=== PATIENT | male | born 1955 | race Two or more races ===

== ENCOUNTER 2018-03-16 10:50 | Inpatient (IN) | payer MEDICARE, MEDICAID ==
[~2018-03-16] VITALS: Ht 167.6 cm; Wt 83.0 kg
[2018-03-16] MEDS ORDERED: ZOFRAN4 M3 ORAL (12:06)
[2018-03-16] MEDS ORDERED: LEXAPRO20 MG ORAL (12:06)
[2018-03-16] MEDS ORDERED: URECHOLINE50 MG ORAL (12:06)
[2018-03-16] MEDS ORDERED: LACTULOSE20 GM/301 ORAL (12:06)
[2018-03-16] MEDS ORDERED: TAMSULOSIN HCL0.4 MG ORAL (12:06)
[2018-03-16] MEDS ORDERED: ASPIR 8181 MG ORAL (12:06)
[2018-03-16] MEDS ORDERED: ACETAMINOPHEN325 M1 ORAL (12:06)
[2018-03-16] MEDS ORDERED: MIRALAX17 G2 ORAL (12:06)
[2018-03-16] MEDS ORDERED: XANAX0.25 MG ORAL (12:06)
[2018-03-16] MEDS ORDERED: NORCO 5-325 TA1 EACH ORAL (12:06)
[2018-03-16] MEDS ORDERED: GABAPENTIN400 MG ORAL (12:06)
[2018-03-16] MEDS ORDERED: ADALAT20 MG ORAL (12:06)
[2018-03-16] MEDS ORDERED: AMITRIPTYLINE100 MG ORAL (12:06)
[2018-03-16] MEDS ORDERED: NOVOLOG100 UNIT/3 SUBQ (12:06)
[2018-03-16] MEDS ORDERED: METOPROLOL TAR100 MG ORAL (12:06)
[2018-03-16] MEDS ORDERED: MELATONIN5 M5 ORAL (12:06)
[2018-03-16] MEDS ORDERED: Morphine Sulfate 4mg/ml Inj (IV USE ONLY) IVP ONE (13:00)
[2018-03-16 13:14] LABS: BASOPHILS % (AUTO) 0.5 % (0.0-2.0); EOSINOPHILS % (AUTO) 0.9 % (0.0-3.0); HEMATOCRIT 29.1 % (42.0-52.0); HEMOGLOBIN 9.4 G/DL (14.2-18.0); LYMPHOCYTES % (AUTO) 10.2 % (20.0-45.0); MEAN CORPUSCULAR VOLUME 86 FL (80-99); MONOCYTES % (AUTO) 6.9 % (1.0-10.0); NEUTROPHILS % (AUTO) 81.5 % (45.0-75.0); PLATELET COUNT 297 K/UL (150-450); RED BLOOD COUNT 3.38 M/UL (4.70-6.10); RED CELL DISTRIBUTION WIDTH 12.7 % (11.6-14.8); WHITE BLOOD COUNT 12.4 K/UL (4.8-10.8)
[2018-03-16 13:17] LABS: INR 0.9 (0.9-1.1)
[2018-03-16 13:25] LABS: ANION GAP 9 mmol/L (5-15); BLOOD UREA NITROGEN 37 mg/dL (7-18); CALCIUM 8.3 MG/DL (8.5-10.1); CARBON DIOXIDE 23 MMOL/L (21-32); CHLORIDE 103 MMOL/L (98-107); POTASSIUM 3.8 MMOL/L (3.5-5.1); SODIUM 135 MMOL/L (136-145)
[2018-03-16 13:36] LABS: ALANINE AMINOTRANSFERASE 16 U/L (12-78); ALBUMIN 2.6 G/DL (3.4-5.0); ALBUMIN/GLOBULIN RATIO 0.6 (1.0-2.7); ALKALINE PHOSPHATASE 126 U/L (46-116); ASPARTATE AMINO TRANSFERASE 8 U/L (15-37); BILIRUBIN,TOTAL 0.2 MG/DL (0.2-1.0); CREATINE KINASE 42 U/L (26-308)
[2018-03-16 13:50] VITALS: BP 154/68
[2018-03-16 14:00] LABS: APPEARANCE,URINE TURBID; BILIRUBIN, URINE NEGATIVE (NEGATIVE); COLOR,URINE PALE YELLOW; GLUCOSE, URINE (UA) 2+ (NEGATIVE); KETONES,URINE NEGATIVE (NEGATIVE); LEUKOCYTE ESTERASE ,URINE 3+ (NEGATIVE); NITRITE,URINE NEGATIVE (NEGATIVE); PH,URINE 8 (4.5-8.0); PROTEIN,URINE 3+ (NEGATIVE); UROBILINOGEN,URINE NORMAL MG/DL (0.0-1.0)
--- NOTE | 2018-03-16 14:36 | Diagnostic Imaging Report ---
Indication: Abdominal pain Technique: Supine view of the abdomen Comparison: none Findings: There is evidence of prior laminectomy at L3, L4, and L5. The bowel gas pattern is unremarkable. There are cholecystectomy clips. Impression: No acute process Postsurgical changes as described
--- NOTE | 2018-03-16 14:37 | Diagnostic Imaging Report ---
Indication: Shortness of breath Technique: One view of the chest Comparison: none Findings: There is minimal retrocardiac opacity, may reflect consolidation or atelectasis. The heart is enlarged. There is some atelectasis or scarring at the right lung base. The heart is borderline enlarged. The pleural spaces are clear Impression: Borderline cardiomegaly Possible retrocardiac atelectasis and/or consolidation Right basilar atelectasis or scarring
[2018-03-16] MEDS ORDERED: Piperacillin/Tazobactam 3.375 GM in NS 110 ML IVPB STA (14:42)
--- NOTE | 2018-03-16 15:29 | Emergency Room Report ---
History of Present Illness General Chief Complaint: Vomiting Source: Patient, EMS Present Illness HPI Patient presents with vomiting. He vomited 3 times yesterday, none today. States feels nausea. Min abdominal pain not rated. Not localize. Unknown last BM. Has mondragon. Changed 1 week ago. Also complaining of low back pain. This rated 7/10, aching. No recent trauma. States more due to being on hard bed. H/O spinal stenosis. Not ambulatory at this time. BPH - mondragon H/O stroke in the past with R weakness. Type 2 diabetes. Unknown recent glucose. Poor historian - unable to answer some questions. Allergies: Coded Allergies: No Known Allergies (Unverified , 03/16/18) Patient History Limited by: medical condition Past Medical History: see triage record, old chart reviewed Past Surgical History: other - lamenectomy Social History: Denies: smoking - former Social History Narrative SNF Reviewed Nursing Documentation: PMH: Agreed; PSxH: Agreed Nursing Documentation-PMH Hx Gastrointestinal Problems: Yes - gerd Hx Cerebrovascular Accident: Yes Review of Systems All Other Systems: limited Physical Exam Vital Signs Date Time Temp Pulse Resp B/P (MAP) Pulse Ox O2 Delivery O2 Flow Rate FiO2 03/16/18 10:50 98.8 64 20 165/76 95 Nasal Cannula 2.0 98.8 Sp02 EP Interpretation: reviewed, abnormal - interpreted as low by me General Appearance: no apparent distress, non-toxic, Chronically Ill Head: normocephalic Eyes: bilateral eye normal inspection, bilateral eye PERRL ENT: moist mucus membranes Neck: supple, no meningismus, no bony tend Respiratory: chest non-tender, lungs clear, normal breath sounds Cardiovascular #1: regular rate, rhythm, no edema Cardiovascular #2: 2+ radial (L) Gastrointestinal: soft, no mass, no guarding, no rebound, decreased bowel sounds Genitourinary: other - mondragon Musculoskeletal: other - extensor contractures feet. R atrophy > L. Diffuse back tenderness Neurologic: alert, DTRs symmetric, sensory intact, no Babinski, motor weakness - R > L, oriented - X2 Psychiatric: depressed affect Medical Decision Making Diagnostic Impression: Primary Impression: Vomiting Qualified Codes: R11.2 - Nausea with vomiting, unspecified Additional Impressions: UTI (urinary tract infection) Qualified Codes: T83.511A - Infection and inflammatory reaction due to indwelling urethral catheter, initial encounter; N39.0 - Urinary tract infection , site not specified Renal insufficiency H/O: stroke Back pain Qualified Codes: M54.5 - Low back pain Hyperglycemia ER Course Patient presents vomiting. Differential includes aspiration, small bowel obstruction, gastroenteritis, urinary tract infection, sepsis amongst others. Patient will be evaluated with EKG, abdominal films, chest x-ray and labs including lactate. Patient will be given IV hydration. If there is a infective source identified antibiotics he instituted. Etiology of back pain is not clear. Complicated patient as unable to give adequate answers. EKG shows sinus rhythm with no acute changes. Chest x-ray no infiltrates. Abdominal films right upper quadrant clips no small bowel obstruction. Labs significant for elevated white count, BUN and creatinine. Also urinalysis shows pyuria. Glucose 221. Patient was complaining about back pain and morphine was administered. Etiology unclear (h/o spinal stenosis and UTI). Antibodies were begun to cover for a urinary tract infection. Patient had no more vomiting here. Patient is admitted to the hospital medical floor under the care of Dr. Carreon. Laboratory Tests Test 03/16/18 12:40 03/16/18 13:45 White Blood Count 12.4 K/UL (4.8-10.8) H Red Blood Count 3.38 M/UL (4.70-6.10) L Hemoglobin 9.4 G/DL (14.2-18.0) L Hematocrit 29.1 % (42.0-52.0) L Mean Corpuscular Volume 86 FL (80-99) Mean Corpuscular Hemoglobin 27.9 PG (27.0-31.0) Mean Corpuscular Hemoglobin Concent 32.3 G/DL (32.0-36.0) Red Cell Distribution Width 12.7 % (11.6-14.8) Platelet Count 297 K/UL (150-450) Mean Platelet Volume 5.7 FL (6.5-10.1) L Neutrophils (%) (Auto) 81.5 % (45.0-75.0) H Lymphocytes (%) (Auto) 10.2 % (20.0-45.0) L Monocytes (%) (Auto) 6.9 % (1.0-10.0) Eosinophils (%) (Auto) 0.9 % (0.0-3.0) Basophils (%) (Auto) 0.5 % (0.0-2.0) Prothrombin Time 10.0 SEC (9.30-11.50) Prothrombin Time INR 0.9 (0.9-1.1) PTT 26 SEC (23-33) Sodium Level 135 MMOL/L (136-145) L Potassium Level 3.8 MMOL/L (3.5-5.1) Chloride Level 103 MMOL/L (98-107) Carbon Dioxide Level 23 MMOL/L (21-32) Anion Gap 9 mmol/L (5-15) Blood Urea Nitrogen 37 mg/dL (7-18) H Creatinine 3.0 MG/DL (0.55-1.30) H Estimate Glomerular Filtration Rate 21.2 mL/min (>60) Glucose Level 221 MG/DL (74-106) H Lactic Acid Level 1.10 mmol/L (0.4-2.0) Calcium Level 8.3 MG/DL (8.5-10.1) L Total Bilirubin 0.2 MG/DL (0.2-1.0) Aspartate Amino Transferase (AST) 8 U/L (15-37) L Alanine Aminotransferase (ALT) 16 U/L (12-78) Alkaline Phosphatase 126 U/L (46-116) H Total Creatine Kinase 42 U/L (26-308) Troponin I 0.005 ng/mL (0.000-0.056) Pro-B-Type Natriuretic Peptide 814 pg/mL (0-125) H Total Protein 7.0 G/DL (6.4-8.2) Albumin 2.6 G/DL (3.4-5.0) L Globulin 4.4 g/dL Albumin/Globulin Ratio 0.6 (1.0-2.7) L Lipase 174 U/L (73-393) Urine Color Pale yellow Urine Appearance Turbid Urine pH 8 (4.5-8.0) Urine Specific Colon 1.010 (1.005-1.035) Urine Protein 3+ (NEGATIVE) H Urine Glucose (UA) 2+ (NEGATIVE) H Urine Ketones Negative (NEGATIVE) Urine Blood 2+ (NEGATIVE) H Urine Nitrite Negative (NEGATIVE) Urine Bilirubin Negative (NEGATIVE) Urine Urobilinogen Normal MG/DL (0.0-1.0) Urine Leukocyte Esterase 3+ (NEGATIVE) H Urine RBC 2-4 /HPF (0 - 0) H Urine WBC 40-60 /HPF (0 - 0) H Urine Squamous Epithelial Cells Few /LPF (NONE/OCC) Urine Bacteria Many /HPF (NONE) H EKG Diagnostic Results Rate: normal Rhythm: NSR ST Segments: no acute changes Rhythm Strip Diag. Results EP Interpretation: yes Rhythm: NSR, no PVC's, no ectopy Chest X-Ray Diagnostic Results Chest X-Ray Diagnostic Results : Chest X-Ray Ordered: Yes # of Views/Limited/Complete: 1 View Indication: Other Interpretation: no consolidation, no effusion, no pneumothorax Impression: No acute disease Electronically Signed by: Electronically signed by Surendra Cramer MD Other X-Ray Diagnostic Results Other X-Ray Diagnostic Results : X-Ray ordered: abd # of Views/Limited Vs Complete: 2 View Indication: Other EP Interpretation: Yes Interpretation: nonspecific bowel gas, no sbo, other - clips RUQ Impression: Other Electronically Signed by: Electronically signed by Surendra Cramer MD Last Vital Signs Date Time Temp Pulse Resp B/P (MAP) Pulse Ox O2 Delivery O2 Flow Rate FiO2 03/16/18 13:50 65 13 154/68 98 Room Air 03/16/18 13:34 98.8 03/16/18 10:50 2.0 Status: improved Disposition: ADMITTED INPATIENT Condition: Serious Referrals: Mei Carreon MD (PCP) Surendra Cramer M.D. Mar 16, 2018 15:29
[2018-03-16 15:52] VITALS: BP 153/69
[2018-03-16 16:00] VITALS: BP 142/75
[2018-03-16] MEDS: Acetaminophen 500mg (ES) tab ORAL PRN ×2 (17:56→18:25)
[2018-03-16 20:00] VITALS: BP 148/78
[2018-03-16] MEDS: Norco 5mg/325mg tab ORAL PRN (20:30)
[2018-03-16] MEDS: ALPRAZolam 0.5mg tab ORAL PRN (23:56)
[2018-03-17] VITALS (9 sets, daily range): BP systolic 124–191; BP diastolic 62–84
--- NOTE | 2018-03-17 | History and Physical Report ---
DATE OF ADMISSION: 03/16/2018 HISTORY OF PRESENT ILLNESS: The patient UTI, acute renal insufficiency, and vomiting. The patient is having vomiting at the shelter. Complains also of back pain and abdominal pain as well. Denies diarrhea. Denies rectal bleeding. Denies fever or chills. The patient does have some dysuria as well. Denies orthopnea. Denies cough. PAST MEDICAL HISTORY: GERD and history of CVA in the past. The patient also has history of anxiety as well as mood disorder as well as NIDDM, insomnia, hypertension, BPH, and urinary retention. ALLERGIES: No known allergy. PAST SURGICAL HISTORY: Denies. MEDICATIONS: Xanax and Lexapro, gabapentin, insulin, meropenem, metoprolol and Flomax. SOCIAL HISTORY: Denies alcohol or street drugs. Comes from a shelter. REVIEW OF SYSTEMS: HEENT: Denies headaches. RESPIRATORY: Denies shortness of breath. Denies cough. CARDIOVASCULAR: Denies chest pain or orthopnea. GASTROINTESTINAL: Denies nausea, vomiting, or diarrhea. Does have abdominal pain and back pain, dysuria and increased frequency of urination. NEUROLOGIC: Denies change in vision or speech pattern. PHYSICAL EXAMINATION: VITAL SIGNS: Temperature is 98.6 degrees, pulse is , and blood pressure 163/69. HEENT: PERRLA. NECK: Supple. No lymphadenopathy. CHEST: Clear to auscultation. GASTROINTESTINAL: Soft, nontender, and nondistended. Does have generalized tenderness, however, no rebound. EXTREMITIES: No edema. Reflexes on both sides. LABORATORY AND DIAGNOSTIC DATA: WBC of 12.4, hemoglobin 9.4, and platelets 297. Sodium 135, potassium 3.8, BUN of 37, creatinine 3, and glucose of 221. AST of 8 and ALT of 16. BNP of 814. Lipase of 174. ASSESSMENT AND PLAN: 1. The patient also has UTI. 2. Acute renal insufficiency, renal failure. 3. Vomiting. 4. History of CVA. I have asked Dr. Franks, Dr. Mehta, and Dr. Mike Verde to see the patient for the above-mentioned diagnoses and treatment. Antibiotics per Dr. Mike Verde. Ali Carlos Carreon DR: PERLITA JOB#: [id number] CC:
[2018-03-17] MEDS: Norco 5mg/325mg tab ORAL PRN ×3 (00:31→21:10)
[2018-03-17 07:45] LABS: BASOPHILS % (AUTO) 0.7 % (0.0-2.0); EOSINOPHILS % (AUTO) 3.7 % (0.0-3.0); HEMATOCRIT 26.7 % (42.0-52.0); HEMOGLOBIN 8.5 G/DL (14.2-18.0); LYMPHOCYTES % (AUTO) 27.9 % (20.0-45.0); MEAN CORPUSCULAR VOLUME 87 FL (80-99); MONOCYTES % (AUTO) 10.4 % (1.0-10.0); NEUTROPHILS % (AUTO) 57.3 % (45.0-75.0); PLATELET COUNT 248 K/UL (150-450); RED BLOOD COUNT 3.07 M/UL (4.70-6.10); RED CELL DISTRIBUTION WIDTH 12.9 % (11.6-14.8); WHITE BLOOD COUNT 7.2 K/UL (4.8-10.8)
[2018-03-17 08:06] LABS: ALANINE AMINOTRANSFERASE 14 U/L (12-78); ALBUMIN 2.1 G/DL (3.4-5.0); ALBUMIN/GLOBULIN RATIO 0.5 (1.0-2.7); ALKALINE PHOSPHATASE 100 U/L (46-116); ANION GAP 7 mmol/L (5-15); ASPARTATE AMINO TRANSFERASE 9 U/L (15-37); BILIRUBIN,TOTAL 0.2 MG/DL (0.2-1.0); BLOOD UREA NITROGEN 28 mg/dL (7-18); CALCIUM 7.9 MG/DL (8.5-10.1); CARBON DIOXIDE 24 MMOL/L (21-32); CHLORIDE 110 MMOL/L (98-107); CREATININE 2.9 MG/DL (0.55-1.30); POTASSIUM 3.6 MMOL/L (3.5-5.1); SODIUM 141 MMOL/L (136-145)
[2018-03-17 09:25] LABS: CHOLESTEROL 162 MG/DL (< 200); CREATINE KINASE 30 U/L (26-308); GAMMA GLUTAMYL TRANSPEPTIDASE 19 U/L (5-85); HDL CHOLESTEROL 34 MG/DL (40-60); TRIGLYCERIDES 143 MG/DL (30-150)
--- NOTE | 2018-03-17 12:24 | Consultation ---
History of Present Illness General Date patient seen: Mar 17, 2018 Chief Complaint: Vomiting Present Illness HPI The patient is a 63 yo UTI, acute renal insufficiency, and vomiting. the pt is confused and anxious. the pt is was focused on eating and has been NPO since yesterday. The pt is getting agitated easily. Allergies: Coded Allergies: No Known Allergies (Unverified , 03/16/18) Medication History Scheduled Alprazolam* (Xanax*), 0.25 MG ORAL BID, (Reported) Amitriptyline HCl (Amitriptyline HCl), 50 MG ORAL BEDTIME, (Reported) Aspirin* (Aspir 81*), 81 MG ORAL DAILY, (Reported) Bethanechol Chl* (Urecholine*), 50 MG ORAL EVERY 6 HOURS, (Reported) Escitalopram Oxalate* (Lexapro*), 20 MG ORAL DAILY, (Reported) Gabapentin* (Gabapentin*), 400 MG ORAL TWICE A DAY, (Reported) Metoprolol Tartrate* (Metoprolol Tartrate*), 100 MG ORAL EVERY 12 HOURS, ( Reported) Nifedipine (Nifedipine*), 90 MG ORAL DAILY, (Reported) Polyethylene Glycol 3350* (Miralax*), 17 GM ORAL DAILY, (Reported) Tamsulosin Hcl (Tamsulosin Hcl*), 0.4 MG ORAL BEDTIME, (Reported) Scheduled PRN Acetaminophen* (Acetaminophen 325MG Tablet*), 650 MG ORAL Q4H PRN for Pain Scale (3-5), (Reported) Hydrocodone Bit/Acetaminophen 5-325* ([place] 5-325*), 1 TAB ORAL Q4H PRN for For Pain, (Reported) Melatonin (Melatonin), 5 MG ORAL BEDTIME PRN for Insomnia, (Reported) Ondansetron* (Zofran*), 4 MG ORAL Q6H PRN for Nausea & Vomiting, (Reported) Miscellaneous Medications Insulin Aspart* (Novolog*), 0 SUBQ, (Reported) Lactulose (Lactulose*), 30 ML ORAL, (Reported) Patient History Limited by: medical condition History Provided By: Patient, Medical Record, PMD Healthcare decision maker Resuscitation status Full Code Advanced Directive on File No Past Medical/Surgical History Past Medical/Surgical History: (1) Renal insufficiency (2) UTI (urinary tract infection) (3) Vomiting (4) H/O: stroke (5) Sepsis (6) Abdominal pain Review of Systems Psychiatric: Reports: prior hx, anxiety, depressed feelings, emotional problems Physical Exam General Appearance: no apparent distress, alert, confused Neurologic: depressed affect Last 24 Hour Vital Signs Date Time Temp Pulse Resp B/P (MAP) Pulse Ox O2 Delivery O2 Flow Rate FiO2 03/17/18 12:14 97.8 64 18 154/79 (104) 95 97.8 03/17/18 09:36 191/72 03/17/18 09:30 159/62 (94) 03/17/18 08:50 191/72 (111) 03/17/18 08:00 97.5 64 20 187/84 (118) 94 97.5 03/17/18 07:40 Room Air 03/17/18 04:00 98.0 61 20 155/82 (106) 94 98.0 03/17/18 00:00 97.9 63 20 124/83 (97) 93 97.9 03/16/18 21:00 Room Air 03/16/18 20:00 97.5 64 20 148/78 (101) 93 97.5 03/16/18 17:28 Room Air 03/16/18 16:10 98.6 68 13 153/69 99 Room Air 2.0 98.6 03/16/18 16:00 98.7 64 19 142/75 (97) 95 98.7 03/16/18 15:52 98.6 68 13 153/69 99 Room Air 98.6 03/16/18 14:04 98.6 03/16/18 13:50 65 13 154/68 98 Room Air 03/16/18 13:34 98.8 Intake and Output 03/16/18 03/17/18 19:00 07:00 Intake Total 65 ml 715 ml Output Total 550 ml 1300 ml Balance -485 ml -585 ml Intake Oral 0 ml IV Total 65 ml 715 ml Output Urine Total 550 ml 1300 ml Laboratory Tests Test 03/16/18 12:40 03/16/18 13:45 03/17/18 06:30 03/17/18 06:35 White Blood Count 12.4 K/UL (4.8-10.8) H 7.2 K/UL (4.8-10.8) Red Blood Count 3.38 M/UL (4.70-6.10) L 3.07 M/UL (4.70-6.10) L Hemoglobin 9.4 G/DL (14.2-18.0) L 8.5 G/DL (14.2-18.0) L Hematocrit 29.1 % (42.0-52.0) L 26.7 % (42.0-52.0) L Mean Corpuscular Volume 86 FL (80-99) 87 FL (80-99) Mean Corpuscular Hemoglobin 27.9 PG (27.0-31.0) 27.7 PG (27.0-31.0) Mean Corpuscular Hemoglobin Concent 32.3 G/DL (32.0-36.0) 31.9 G/DL (32.0-36.0) L Red Cell Distribution Width 12.7 % (11.6-14.8) 12.9 % (11.6-14.8) Platelet Count 297 K/UL (150-450) 248 K/UL (150-450) Mean Platelet Volume 5.7 FL (6.5-10.1) L 5.7 FL (6.5-10.1) L Neutrophils (%) (Auto) 81.5 % (45.0-75.0) H 57.3 % (45.0-75.0) Lymphocytes (%) (Auto) 10.2 % (20.0-45.0) L 27.9 % (20.0-45.0) Monocytes (%) (Auto) 6.9 % (1.0-10.0) 10.4 % (1.0-10.0) H Eosinophils (%) (Auto) 0.9 % (0.0-3.0) 3.7 % (0.0-3.0) H Basophils (%) (Auto) 0.5 % (0.0-2.0) 0.7 % (0.0-2.0) Prothrombin Time 10.0 SEC (9.30-11.50) Prothromb Time International Ratio 0.9 (0.9-1.1) Activated Partial Thromboplast Time 26 SEC (23-33) Sodium Level 135 MMOL/L (136-145) L 141 MMOL/L (136-145) Potassium Level 3.8 MMOL/L (3.5-5.1) 3.6 MMOL/L (3.5-5.1) Chloride Level 103 MMOL/L (98-107) 110 MMOL/L (98-107) H Carbon Dioxide Level 23 MMOL/L (21-32) 24 MMOL/L (21-32) Anion Gap 9 mmol/L (5-15) 7 mmol/L (5-15) Blood Urea Nitrogen 37 mg/dL (7-18) H 28 mg/dL (7-18) H Creatinine 3.0 MG/DL (0.55-1.30) H 2.9 MG/DL (0.55-1.30) H Estimat Glomerular Filtration Rate 21.2 mL/min (>60) 22.1 mL/min (>60) Glucose Level 221 MG/DL (74-106) H 108 MG/DL (74-106) #H Lactic Acid Level 1.10 mmol/L (0.4-2.0) Calcium Level 8.3 MG/DL (8.5-10.1) L 7.9 MG/DL (8.5-10.1) L Total Bilirubin 0.2 MG/DL (0.2-1.0) 0.2 MG/DL (0.2-1.0) Aspartate Amino Transf (AST/SGOT) 8 U/L (15-37) L 9 U/L (15-37) L Alanine Aminotransferase (ALT/SGPT) 16 U/L (12-78) 14 U/L (12-78) Alkaline Phosphatase 126 U/L (46-116) H 100 U/L (46-116) Total Creatine Kinase 42 U/L (26-308) 30 U/L (26-308) Troponin I 0.005 ng/mL (0.000-0.056) Pro-B-Type Natriuretic Peptide 814 pg/mL (0-125) H 994 pg/mL (0-125) H Total Protein 7.0 G/DL (6.4-8.2) 6.1 G/DL (6.4-8.2) L Albumin 2.6 G/DL (3.4-5.0) L 2.1 G/DL (3.4-5.0) L Globulin 4.4 g/dL 4.0 g/dL Albumin/Globulin Ratio 0.6 (1.0-2.7) L 0.5 (1.0-2.7) L Lipase 174 U/L (73-393) Urine Color Pale yellow Urine Appearance Turbid Urine pH 8 (4.5-8.0) Urine Specific [place] 1.010 (1.005-1.035) Urine Protein 3+ (NEGATIVE) H Urine Glucose (UA) 2+ (NEGATIVE) H Urine Ketones Negative (NEGATIVE) Urine Blood 2+ (NEGATIVE) H Urine Nitrite Negative (NEGATIVE) Urine Bilirubin Negative (NEGATIVE) Urine Urobilinogen Normal MG/DL (0.0-1.0) Urine Leukocyte Esterase 3+ (NEGATIVE) H Urine RBC 2-4 /HPF (0 - 0) H Urine WBC 40-60 /HPF (0 - 0) H Urine Squamous Epithelial Cells Few /LPF (NONE/OCC) Urine Bacteria Many /HPF (NONE) H Hemoglobin A1c 7.7 % (4.3-6.0) H Uric Acid 6.9 MG/DL (2.6-7.2) Phosphorus Level 4.0 MG/DL (2.5-4.9) Magnesium Level 1.8 MG/DL (1.8-2.4) Gamma Glutamyl Transpeptidase 19 U/L (5-85) C-Reactive Protein, Quantitative 2.2 mg/dL (0.00-0.90) H Triglycerides Level 143 MG/DL (30-150) Cholesterol Level 162 MG/DL (< 200) LDL Cholesterol 101 mg/dL (<100) H HDL Cholesterol 34 MG/DL (40-60) L Cholesterol/HDL Ratio 4.8 (3.3-4.4) H Vitamin B12 Level 283 PG/ML (193-986) Thyroid Stimulating Hormone (TSH) 1.165 uiU/mL (0.358-3.740) Test 03/17/18 12:15 Iron Level Pending Unsaturated Iron Binding Pending Ferritin Pending Folate Pending Microbiology Date/Time Source Procedure Growth Status 03/16/18 12:40 Blood Blood Culture - Preliminary Resulted 03/16/18 13:45 Urine,Clean Catch Urine Culture - Preliminary Resulted Height (Feet): 5 Height (Inches): 6.00 Weight (Pounds): 183 Medications Current Medications Medications (Trade) Dose Ordered Sig/Martin Route PRN Reason Start Time Stop Time Status Last Admin Dose Admin Acetaminophen (Tylenol) 500 mg Q6H PRN ORAL Mild Pain/Temp > 100.5 03/16/18 17:30 04/15/18 17:29 03/16/18 18:25 Acetaminophen/ Hydrocodone Bitart ([place] 5/325) 1 tab Q4H PRN ORAL Moderate Pain (Pain Scale 4-6) 03/16/18 20:15 03/23/18 20:14 03/17/18 08:22 Alprazolam (Xanax) 0.5 mg EVERY 8 HOURS PRN ORAL For Anxiety 03/16/18 23:45 03/23/18 23:44 03/16/18 23:56 Clonidine HCl (Catapres Tab) 0.1 mg Q6H PRN ORAL SBP>170 03/17/18 09:30 04/16/18 09:29 03/17/18 09:36 Mirtazapine (Remeron) 15 mg BEDTIME ORAL 03/16/18 23:45 04/15/18 23:44 03/16/18 23:56 Ondansetron HCl (Zofran) 4 mg Q6H PRN IVP Nausea & Vomiting 03/16/18 17:30 04/15/18 17:29 03/16/18 17:56 Sodium Chloride 1,000 ml @ 65 mls/hr [id number] IV 03/16/18 17:30 04/15/18 17:29 03/17/18 06:07 Vancomycin HCl (Vanco rx to dose) 1 ea DAILY PRN MISC Per rx protocol 03/17/18 12:15 04/16/18 12:14 UNV Assessment/Plan Status: stable Assessment/Plan [place] [facility] [place] xanax prn seroquel prn Nell Daniels MD Mar 17, 2018 12:24
[2018-03-17 12:45] LABS: FERRITIN 17 NG/ML (8-388)
[2018-03-17 12:47] LABS: % IRON SATURATION 20 % (15-50); IRON 55 ug/dL (50-175); TOTAL IRON BINDING CAPACITY 275 ug/dL (250-450)
[2018-03-17] MEDS ORDERED: Vancomycin 1.5 GM/D5W 250ML IVPB ONE (14:00)
--- NOTE | 2018-03-17 14:31 | General Progress Note ---
Assessment/Plan Problem List: (1) Renal insufficiency ICD Codes: N28.9 - Disorder of kidney and ureter, unspecified SNOMED: 782472625, 563528311 (2) UTI (urinary tract infection) ICD Codes: N39.0 - Urinary tract infection, site not specified SNOMED: 73796375, 697990710 (3) Vomiting ICD Codes: R11.10 - Vomiting, unspecified SNOMED: 466415280, 052925172 (4) H/O: stroke ICD Codes: Z86.73 - Personal history of transient ischemic attack (TIA), and cerebral infarction without residual deficits SNOMED: 922655033, 745772398 (5) Abdominal pain ICD Codes: R10.9 - Unspecified abdominal pain SNOMED: 38143976 Status: progressing Assessment/Plan elevated bp uti s/p vomitting dm htn abx per id afebrile h/o cva Subjective ROS Limited/Unobtainable: Yes Allergies: Coded Allergies: No Known Allergies (Unverified , 03/16/18) Objective Last 24 Hour Vital Signs Date Time Temp Pulse Resp B/P (MAP) Pulse Ox O2 Delivery O2 Flow Rate FiO2 03/17/18 12:14 97.8 64 18 154/79 (104) 95 97.8 03/17/18 09:36 191/72 03/17/18 09:30 159/62 (94) 03/17/18 08:50 191/72 (111) 03/17/18 08:00 97.5 64 20 187/84 (118) 94 97.5 03/17/18 07:40 Room Air 03/17/18 04:00 98.0 61 20 155/82 (106) 94 98.0 03/17/18 00:00 97.9 63 20 124/83 (97) 93 97.9 03/16/18 21:00 Room Air 03/16/18 20:00 97.5 64 20 148/78 (101) 93 97.5 03/16/18 17:28 Room Air 03/16/18 16:10 98.6 68 13 153/69 99 Room Air 2.0 98.6 03/16/18 16:00 98.7 64 19 142/75 (97) 95 98.7 03/16/18 15:52 98.6 68 13 153/69 99 Room Air 98.6 Intake and Output 03/16/18 03/17/18 19:00 07:00 Intake Total 65 ml 715 ml Output Total 550 ml 1300 ml Balance -485 ml -585 ml Intake Oral 0 ml IV Total 65 ml 715 ml Output Urine Total 550 ml 1300 ml Laboratory Tests 03/17/18 06:30: Hemoglobin A1c 7.7H, Uric Acid 6.9, Phosphorus Level 4.0, Magnesium Level 1.8, Gamma Glutamyl Transpeptidase 19, Total Creatine Kinase 30, C-Reactive Protein, Quantitative 2.2H, Pro-B-Type Natriuretic Peptide 994H, Triglycerides Level 143 , Cholesterol Level 162, LDL Cholesterol 101H, HDL Cholesterol 34L, Cholesterol/ HDL Ratio 4.8H, Vitamin B12 Level 283, Thyroid Stimulating Hormone (TSH) 1.165 03/17/18 06:35: White Blood Count 7.2, Red Blood Count 3.07L, Hemoglobin 8.5L, Hematocrit 26.7L , Mean Corpuscular Volume 87, Mean Corpuscular Hemoglobin 27.7, Mean Corpuscular Hemoglobin Concent 31.9L, Red Cell Distribution Width 12.9, Platelet Count 248, Mean Platelet Volume 5.7L, Neutrophils (%) (Auto) 57.3, Lymphocytes (%) (Auto) 27.9, Monocytes (%) (Auto) 10.4H, Eosinophils (%) (Auto) 3.7H, Basophils (%) (Auto) 0.7, Sodium Level 141, Potassium Level 3.6, Chloride Level 110H, Carbon Dioxide Level 24, Anion Gap 7, Blood Urea Nitrogen 28H, Creatinine 2.9H, Estimat Glomerular Filtration Rate 22.1, Glucose Level 108#H, Calcium Level 7.9L, Iron Level 55, Total Iron Binding Capacity 275, Percent Iron Saturation 20, Unsaturated Iron Binding 220, Ferritin 17, Total Bilirubin 0.2, Aspartate Amino Transf (AST/SGOT) 9L, Alanine Aminotransferase (ALT/SGPT) 14, Alkaline Phosphatase 100, Total Protein 6.1L, Albumin 2.1L, Globulin 4.0, Albumin/Globulin Ratio 0.5L, Folate 4.3L Height (Feet): 5 Height (Inches): 6.00 Weight (Pounds): 183 Cardiovascular: normal rate Respiratory/Chest: lungs clear Abdomen: soft Mei Carreon MD Mar 17, 2018 14:31
--- NOTE | 2018-03-17 14:40 | Consultation ---
Consult Note Consult Note asked to eval for renal failure- patient admitted with vomiting and abdominal pain Patient admitted through ER Poor historian Examined data reviewed discussed with RN . Assessment/Plan Renal failure, Diabetic Nephropathy Vomiting ? Gastroparesis UTI (urinary tract infection) H/O: stroke Anemia DM Reglan IV Protonix Hydrate Kidney AIMNTA 2D Echo PO folic acid Royce Mehta MD Mar 17, 2018 14:40
[2018-03-17] MEDS ORDERED: Metoclopramide 10mg/2ml Inj IVP SCH (14:45)
[2018-03-17] MEDS ORDERED: Metoclopramide 10mg/2ml Inj IVP PRN (14:45)
[2018-03-17] MEDS ORDERED: Vitamin B12 1000mcg/ml Inj IM SCH (15:00)
[2018-03-17] MEDS: Pantoprazole Inj IVP SCH (15:14)
--- NOTE | 2018-03-17 16:12 | GI Initial Consult Note ---
History of Present Illness General Date patient seen: Mar 17, 2018 Time patient seen: 16:12 Reason for Hospitalization: Vomiting Referring physician: DORYS ERICKSON Reason for Consultation: VOMITING Present Illness HPI 63 year old male patient presents today with UTI, acute renal insufficiency, and vomiting. The patient is having vomiting at the half-way. Complains also of back pain and abdominal pain as well. Denies diarrhea. Denies rectal bleeding. Denies fever or chills. The patient does have some dysuria as well. Denies orthopnea. Denies cough. GI consulted for vomiting. Pt seen, awake A&Ox4 NAD with no active s/x of N/V/ D. Has Right sided weakness s/p CVA Denies any current abdominal pain, constipation or diarrhea. The patient stated he had earlier episodes of emesis , but denied any coffee grounds or hematemesis, which has resolved at this time. Labs reviewed show anemia, elevated HgA1C, folate deficiency and CRP elevation. KUB negative. Per patient, he had both EGD and colonoscopy approximately 2 years ago, but unable to recall any of its results. Home Meds Reported Medications Insulin Aspart* (NOVOLOG*) 100 Unit/1 Ml Insuln.pen, 0 SUBQ, #1 EA 0 Refills 03/16/18 Ondansetron* (ZOFRAN*) 4 Mg Tablet, 4 MG ORAL Q6H PRN for Nausea & Vomiting, TAB 03/16/18 Alprazolam* (XANAX*) 0.25 Mg Tablet, 0.25 MG ORAL BID, #30 TAB 0 Refills 03/16/18 Bethanechol Chl* (URECHOLINE*) 50 Mg Tablet, 50 MG ORAL EVERY 6 HOURS, TAB 03/16/18 Tamsulosin Hcl (TAMSULOSIN HCL*) 0.4 Mg Cap.er.24h, 0.4 MG ORAL BEDTIME, CAP 03/16/18 Hydrocodone Bit/Acetaminophen 5-325* (NORCO 5-325*) 1 Each Tablet, 1 TAB ORAL Q4H PRN for For Pain, TAB 0 Refills 03/16/18 Nifedipine (Nifedipine*) 20 Mg Capsule, 90 MG ORAL DAILY, CAP 03/16/18 Polyethylene Glycol 3350* (MIRALAX*) 17 Gm Powd.pack, 17 GM ORAL DAILY, PACKET 03/16/18 Metoprolol Tartrate* (METOPROLOL TARTRATE*) 100 Mg Tablet, 100 MG ORAL EVERY 12 HOURS, TAB 03/16/18 Melatonin (MELATONIN) 5 Mg Tab.rapdis, 5 MG ORAL BEDTIME PRN for Insomnia, TAB 03/16/18 Escitalopram Oxalate* (LEXAPRO*) 20 Mg Tablet, 20 MG ORAL DAILY, TAB 03/16/18 Lactulose (LACTULOSE*) 20 Gm/30 Ml Solution, 30 ML ORAL, ML 0 Refills 03/16/18 Gabapentin* (GABAPENTIN*) 400 Mg Capsule, 400 MG ORAL TWICE A DAY, CAP 0 Refills 03/16/18 Aspirin* (ASPIR 81*) 81 Mg Tablet.dr, 81 MG ORAL DAILY, TAB 03/16/18 Amitriptyline HCl (Amitriptyline HCl) 100 Mg Tablet, 50 MG ORAL BEDTIME, TAB 03/16/18 Acetaminophen* (ACETAMINOPHEN 325MG TABLET*) 325 Mg Tablet, 650 MG ORAL Q4H PRN for Pain Scale (3-5), TAB 03/16/18 Med list reviewed/reconciled: Yes Allergies: Coded Allergies: No Known Allergies (Unverified , 03/16/18) Patient History History Provided By: Patient, Medical Record [facility] Narrative PAST MEDICAL HISTORY: GERD and history of CVA in the past. The patient also has history of anxiety as well as mood disorder as well as NIDDM, insomnia, hypertension, BPH, and urinary retention. Social History: Denies: smoking, alcohol use, drug use, other Review of Systems All Other Systems: negative except mentioned in HPI Physical Exam Vital Signs Date Time Temp Pulse Resp B/P (MAP) Pulse Ox O2 Delivery O2 Flow Rate FiO2 03/16/18 10:50 98.8 64 20 165/76 95 Nasal Cannula 2.0 98.8 Sp02 EP Interpretation: reviewed, normal Labs Laboratory Tests Test 03/17/18 06:30 03/17/18 06:35 Hemoglobin A1c 7.7 % (4.3-6.0) H Uric Acid 6.9 MG/DL (2.6-7.2) Phosphorus Level 4.0 MG/DL (2.5-4.9) Magnesium Level 1.8 MG/DL (1.8-2.4) Gamma Glutamyl Transpeptidase 19 U/L (5-85) Total Creatine Kinase 30 U/L (26-308) C-Reactive Protein, Quantitative 2.5 mg/dL (0.00-0.90) H Pro-B-Type Natriuretic Peptide 994 pg/mL (0-125) H Triglycerides Level 143 MG/DL (30-150) Cholesterol Level 162 MG/DL (< 200) LDL Cholesterol 101 mg/dL (<100) H HDL Cholesterol 34 MG/DL (40-60) L Cholesterol/HDL Ratio 4.8 (3.3-4.4) H Vitamin B12 Level 283 PG/ML (193-986) Thyroid Stimulating Hormone (TSH) 1.165 uiU/mL (0.358-3.740) White Blood Count 7.2 K/UL (4.8-10.8) Red Blood Count 3.07 M/UL (4.70-6.10) L Hemoglobin 8.5 G/DL (14.2-18.0) L Hematocrit 26.7 % (42.0-52.0) L Mean Corpuscular Volume 87 FL (80-99) Mean Corpuscular Hemoglobin 27.7 PG (27.0-31.0) Mean Corpuscular Hemoglobin Concent 31.9 G/DL (32.0-36.0) L Red Cell Distribution Width 12.9 % (11.6-14.8) Platelet Count 248 K/UL (150-450) Mean Platelet Volume 5.7 FL (6.5-10.1) L Neutrophils (%) (Auto) 57.3 % (45.0-75.0) Lymphocytes (%) (Auto) 27.9 % (20.0-45.0) Monocytes (%) (Auto) 10.4 % (1.0-10.0) H Eosinophils (%) (Auto) 3.7 % (0.0-3.0) H Basophils (%) (Auto) 0.7 % (0.0-2.0) Sodium Level 141 MMOL/L (136-145) Potassium Level 3.6 MMOL/L (3.5-5.1) Chloride Level 110 MMOL/L (98-107) H Carbon Dioxide Level 24 MMOL/L (21-32) Anion Gap 7 mmol/L (5-15) Blood Urea Nitrogen 28 mg/dL (7-18) H Creatinine 2.9 MG/DL (0.55-1.30) H Estimat Glomerular Filtration Rate 22.1 mL/min (>60) Glucose Level 108 MG/DL (74-106) #H Calcium Level 7.9 MG/DL (8.5-10.1) L Iron Level 55 ug/dL (50-175) Total Iron Binding Capacity 275 ug/dL (250-450) Percent Iron Saturation 20 % (15-50) Unsaturated Iron Binding 220 ug/dL (112-346) Ferritin 17 NG/ML (8-388) Total Bilirubin 0.2 MG/DL (0.2-1.0) Aspartate Amino Transf (AST/SGOT) 9 U/L (15-37) L Alanine Aminotransferase (ALT/SGPT) 14 U/L (12-78) Alkaline Phosphatase 100 U/L (46-116) Total Protein 6.1 G/DL (6.4-8.2) L Albumin 2.1 G/DL (3.4-5.0) L Globulin 4.0 g/dL Albumin/Globulin Ratio 0.5 (1.0-2.7) L Folate 4.3 NG/ML (8.6-58.9) L General Appearance: well appearing, no apparent distress, alert Head: normocephalic EENT: PERRL/EOMI, normal ENT inspection Neck: supple Respiratory: normal breath sounds, no respiratory distress Cardiovascular: normal rate Gastrointestinal: normal inspection, non tender, soft, normal bowel sounds, non -distended Rectal: deferred Genitourinary: deferred Musculoskeletal: normal inspection, back normal Neurologic: normal inspection, alert, oriented x3, responsive Psychiatric: normal inspection, judgement/insight normal, memory normal Skin: normal inspection, normal color, no rash, warm/dry, palpation normal, well hydrated Lymphatic: normal inspection, no adenopathy Current Medications Current Medications Medications (Trade) Dose Ordered Sig/Martin Route PRN Reason Start Time Stop Time Status Last Admin Dose Admin Acetaminophen (Tylenol) 500 mg Q6H PRN ORAL Mild Pain/Temp > 100.5 03/16/18 17:30 04/15/18 17:29 03/16/18 18:25 Acetaminophen/ Hydrocodone Bitart ([place] 5/325) 1 tab Q4H PRN ORAL Moderate Pain (Pain Scale 4-6) 03/16/18 20:15 03/23/18 20:14 9/20/18 08:22 Alprazolam (Xanax) 0.5 mg EVERY 8 HOURS PRN ORAL For Anxiety 03/16/18 23:45 03/23/18 23:44 03/16/18 23:56 Aspirin (Ecotrin) 81 mg DAILY ORAL 03/18/18 09:00 04/17/18 08:59 Ceftriaxone Sodium 1 gm/ Dextrose 55 ml @ 110 mls/hr Q24H IVPB 03/17/18 17:00 03/24/18 16:59 Clonidine HCl (Catapres Tab) 0.1 mg Q6H PRN ORAL SBP>170 03/17/18 09:30 04/16/18 09:29 03/17/18 09:36 Cyanocobalamin (Vitamin B12) 1,000 mcg ONCE IM 03/17/18 15:00 03/17/18 16:30 03/17/18 15:15 Dextrose (Dextrose 50%) 25 ml PRN PRN IV Hypoglycemia 03/17/18 13:00 04/16/18 12:59 Dextrose (Dextrose 50%) 50 ml PRN PRN IV Hypoglycemia 03/17/18 13:00 04/16/18 12:59 Docusate Sodium (Colace) 100 mg THREE TIMES A DAY ORAL 03/17/18 18:00 04/16/18 17:59 Escitalopram Oxalate (Lexapro) 10 mg DAILY ORAL 03/18/18 09:00 04/17/18 08:59 Folic Acid (Folate) 2 mg DAILY ORAL 03/18/18 09:00 04/17/18 08:59 Insulin Aspart (NovoLOG) BEFORE MEALS AND HS SUBQ 03/17/18 16:30 04/16/18 16:29 Metoclopramide HCl (Reglan) 10 mg Q8H PRN IVP Nausea & Vomiting 03/17/18 14:45 04/16/18 14:44 Metoprolol Tartrate (Lopressor) 25 mg EVERY 12 HOURS ORAL 03/17/18 21:00 04/16/18 20:59 Mirtazapine (Remeron) 15 mg BEDTIME ORAL 03/16/18 23:45 04/15/18 23:44 03/16/18 23:56 Ondansetron HCl (Zofran) 4 mg Q6H PRN IVP Nausea & Vomiting 03/16/18 17:30 04/15/18 17:29 03/16/18 17:56 Pantoprazole (Protonix) 40 mg DAILY IVP 03/17/18 15:00 04/16/18 14:59 03/17/18 15:14 Quetiapine Fumarate (SEROquel) 25 mg Q6H PRN ORAL agitation 03/17/18 13:00 04/16/18 12:59 Sodium Chloride 1,000 ml @ 75 mls/hr [id number] IV 03/17/18 15:00 04/16/18 14:59 Tamsulosin HCl (Flomax) 0.4 mg BEDTIME ORAL 03/17/18 21:00 04/16/18 20:59 Vancomycin HCl (Vanco rx to dose) 1 ea DAILY PRN MISC Per rx protocol 03/17/18 12:15 04/16/18 12:14 GI: Plan Problems: (1) Diabetes mellitus (2) Folate deficiency (3) Abdominal pain (4) Sepsis (5) Vomiting (6) H/O: stroke (7) Gastroparesis due to DM Plan R sided weakness s/p CVA anemia work up reviewed >> folate deficiency DM elevated CRP renal insufficiency KUB unremarkable Hx of UC will consider endoscopy if medical management fails, most likely gastroparesis DM management reglan IV for N/V PRN adv diet as tolerated folate monitor H&H, prn transfusions ppi fu labs, ESR Discussed with Dr. Franks. Thank you for this patient referral, we will follow. The patient was seen and examined at bedside and all new and available data was reviewed in the patients chart. I agree with the above findings, impression and plan. (Patient seen earlier today. Signature stamp does not reflect patient encounter time.). - MD Poonam Mcclain,[facility] Mar 17, 2018 16:12
--- NOTE | 2018-03-17 16:30 | Diagnostic Imaging Report ---
Indication: Acute renal failure Technique: Grayscale and duplex images of the kidneys, retroperitoneum, and bladder were obtained. Comparison: none Findings: Right kidney measures 8.5 cm in length. Left kidney measures 10.2 cm in length. Both kidneys demonstrate increased echogenicity. No hydronephrosis. Cysts are seen in both kidneys. Inferior vena cava is not well-visualized, probably related to patient body habitus. Bladder is empty, contains a Rain catheter. Impression: Negative for hydronephrosis Increased bilateral renal echogenicity, likely on the basis of medical renal disease Empty bladder with a Rain catheter Nonvisualized inferior vena cava Bilateral renal cysts incidentally noted.
[2018-03-17] MEDS: NovoLOG Insulin Flexpen SUBQ SCH ×2 (16:37→21:11)
[2018-03-17] MEDS: Docusate 100mg cap ORAL SCH (17:28)
[2018-03-17] MEDS: cefTRIAXone 1 GM in D5W 55 ML IVPB SCH (17:28)
--- NOTE | 2018-03-17 19:15 | Consultation ---
DATE OF CONSULTATION: 03/17/2018 INFECTIOUS DISEASE CONSULTATION CONSULTING PHYSICIAN: Mike Verde M.D. PRIMARY ATTENDING PHYSICIAN: Mei Carreon M.D. REASON FOR CONSULT: UTI and positive blood culture. HISTORY OF PRESENT ILLNESS: The patient is a 63-year-old male admitted yesterday from a care home facility complaining of nausea and vomiting. He was found to have mild leukocytosis. He was found to have acute renal failure and pyuria. PAST MEDICAL HISTORY: Significant for diabetes mellitus type 2, BPH, hypertension, status post CVA and right hemiplegia. ALLERGIES: No known drug allergies. MEDICATIONS: Getting Lexapro, aspirin, folic acid, metoprolol, Flomax, Colace, insulin, Protonix, vitamin B12, metoclopramide, vancomycin, Tylenol, Zofran and also get Levaquin and Zosyn in the ER. SOCIAL HISTORY: [facility] resident. He has history of alcohol, drug abuse and smoking 5 years ago. REVIEW OF SYSTEMS: No fever. No chills. Nausea and vomiting improved today. No pain. He have dysuria. PHYSICAL EXAMINATION: GENERAL APPEARANCE: No acute distress. Awake, alert, noncommunicative. VITAL SIGNS: Temperature 97.8 degrees, pulse 64, and blood pressure 154/79. HEAD AND NECK: [place] conjunctivae. HEART: Normal rate. LUNGS: Clear. ABDOMEN: Soft and nontender. EXTREMITY: He has no edema. GENITOURINARY: He has Rain catheter. LABORATORY AND DIAGNOSTIC DATA: WBC today is 7.2 coming down from 12.4, hemoglobin 8.5, hematocrit 26.7 and platelet 248. Sodium 141, potassium 3.6, chloride 110, bicarbonate 24, BUN 28, creatinine 2.9 and glucose 108. Hemoglobin A1c is 7.7. Albumin is 2.1. Urine culture is pending. Blood culture grew gram-positive coccyx in cluster. The patient had x-ray that shows retrocardiac opacity, atelectasis or consolidation. IMPRESSION: 1. Bacteremia, with gram positive cocci . 2. Pyuria, likely UTI. 3. Acute renal failure. 4. Anemia. 5. Diabetes mellitus. 6. Hypertension. 7. Prostatic hypertrophy. RECOMMENDATION: We will continue with IV vancomycin, started on IV ceftriaxone. We will follow up the cultures. At the end of my exam, I thank Dr. Carreon for involving me in the care of this patient. Mike Verde M.D. DR: TOÑITO JOB#: [id number] CC: NICK
[2018-03-17] MEDS: ALPRAZolam 0.5mg tab ORAL PRN (21:09)
[2018-03-17] MEDS: Tamsulosin 0.4mg cap ORAL SCH (21:10)
[2018-03-17] MEDS: Metoprolol 25mg tab ORAL SCH (21:12)
[2018-03-18] VITALS: BP 169/79
[2018-03-18 04:03] VITALS: BP 193/71
[2018-03-18] MEDS: Norco 5mg/325mg tab ORAL PRN ×2 (04:48→18:37)
[2018-03-18 06:09] LABS: BASOPHILS % (AUTO) 0.6 % (0.0-2.0); EOSINOPHILS % (AUTO) 3.1 % (0.0-3.0); HEMATOCRIT 28.9 % (42.0-52.0); HEMOGLOBIN 9.3 G/DL (14.2-18.0); LYMPHOCYTES % (AUTO) 22.6 % (20.0-45.0); MEAN CORPUSCULAR VOLUME 87 FL (80-99); MONOCYTES % (AUTO) 10.9 % (1.0-10.0); NEUTROPHILS % (AUTO) 62.8 % (45.0-75.0); PLATELET COUNT 241 K/UL (150-450); RED BLOOD COUNT 3.33 M/UL (4.70-6.10); RED CELL DISTRIBUTION WIDTH 12.7 % (11.6-14.8); WHITE BLOOD COUNT 8.2 K/UL (4.8-10.8)
[2018-03-18] MEDS: NovoLOG Insulin Flexpen SUBQ SCH ×4 (06:11→21:17)
[2018-03-18 06:21] LABS: ALANINE AMINOTRANSFERASE 14 U/L (12-78); ALBUMIN 2.2 G/DL (3.4-5.0); ALBUMIN/GLOBULIN RATIO 0.5 (1.0-2.7); ALKALINE PHOSPHATASE 101 U/L (46-116); ANION GAP 9 mmol/L (5-15); ASPARTATE AMINO TRANSFERASE 7 U/L (15-37); BILIRUBIN,TOTAL 0.3 MG/DL (0.2-1.0); BLOOD UREA NITROGEN 30 mg/dL (7-18); CARBON DIOXIDE 24 MMOL/L (21-32); CHLORIDE 108 MMOL/L (98-107); PHOSPHORUS 4.2 MG/DL (2.5-4.9); POTASSIUM 4.1 MMOL/L (3.5-5.1); SODIUM 141 MMOL/L (136-145)
[2018-03-18] MEDS: Pantoprazole Inj IVP SCH (08:12)
[2018-03-18] MEDS: Metoprolol 25mg tab ORAL SCH ×2 (08:12→21:14)
[2018-03-18] MEDS: Aspirin EC 81mg tab ORAL SCH (08:12)
[2018-03-18] MEDS: Docusate 100mg cap ORAL SCH ×3 (08:12→17:16)
[2018-03-18 08:55] VITALS: BP 125/75
--- NOTE | 2018-03-18 11:00 | Consultation ---
Consult Note Consult Note Hematology Consult Reason for Hospitalization: Vomiting Referring physician: DORYS ERICKSON Reason for Consultation: Anemia evaluation DOS: 03/17/2018 ID 63 year old male patient presents today with UTI, acute renal insufficiency, and vomiting. The patient is having vomiting at the halfway. Complains also of back pain and abdominal pain as well. Denies diarrhea. Denies rectal bleeding. Denies fever or chills. The patient does have some dysuria as well. Denies orthopnea. Denies cough. GI consulted for vomiting. Pt seen, awake A& Ox4 NAD with no active s/x of N/V/D. Has Right sided weakness s/p CVA Denies any current abdominal pain, constipation or diarrhea. The patient stated he had earlier episodes of emesis, but denied any coffee grounds or hematemesis, which has resolved at this time. Labs reviewed show anemia, elevated HgA1C, folate deficiency and CRP elevation. KUB negative. Per patient, he had both EGD and colonoscopy approximately 2 years ago, but unable to recall any of its results. Anemia of iron deficiency was noted and he was started on iv iron as ferritin is low. Medications Insulin Aspart* (NOVOLOG*) 100 Unit/1 Ml Insuln.pen, 0 SUBQ, #1 EA 0 Refills 03/16/18 Ondansetron* (ZOFRAN*) 4 Mg Tablet, 4 MG ORAL Q6H PRN for Nausea & Vomiting, TAB 03/16/18 Alprazolam* (XANAX*) 0.25 Mg Tablet, 0.25 MG ORAL BID, #30 TAB 0 Refills 03/16/18 Bethanechol Chl* (URECHOLINE*) 50 Mg Tablet, 50 MG ORAL EVERY 6 HOURS, TAB 03/16/18 Tamsulosin Hcl (TAMSULOSIN HCL*) 0.4 Mg Cap.er.24h, 0.4 MG ORAL BEDTIME, CAP 03/16/18 Hydrocodone Bit/Acetaminophen 5-325* (NORCO 5-325*) 1 Each Tablet, 1 TAB ORAL Q4H PRN for For Pain, TAB 0 Refills 03/16/18 Nifedipine (Nifedipine*) 20 Mg Capsule, 90 MG ORAL DAILY, CAP 03/16/18 Polyethylene Glycol 3350* (MIRALAX*) 17 Gm Powd.pack, 17 GM ORAL DAILY, PACKET 03/16/18 Metoprolol Tartrate* (METOPROLOL TARTRATE*) 100 Mg Tablet, 100 MG ORAL EVERY 12 HOURS, TAB 03/16/18 Melatonin (MELATONIN) 5 Mg Tab.rapdis, 5 MG ORAL BEDTIME PRN for Insomnia, TAB 03/16/18 Escitalopram Oxalate* (LEXAPRO*) 20 Mg Tablet, 20 MG ORAL DAILY, TAB 03/16/18 Lactulose (LACTULOSE*) 20 Gm/30 Ml Solution, 30 ML ORAL, ML 0 Refills 03/16/18 Gabapentin* (GABAPENTIN*) 400 Mg Capsule, 400 MG ORAL TWICE A DAY, CAP 0 Refills 03/16/18 Aspirin* (ASPIR 81*) 81 Mg Tablet.dr, 81 MG ORAL DAILY, TAB 03/16/18 Amitriptyline HCl (Amitriptyline HCl) 100 Mg Tablet, 50 MG ORAL BEDTIME, TAB 03/16/18 Acetaminophen* (ACETAMINOPHEN 325MG TABLET*) 325 Mg Tablet, 650 MG ORAL Q4H PRN for Pain Scale (3-5), TAB 03/16/18 Med list reviewed/reconciled: Yes Allergies: No Known Allergies (Unverified , 03/16/18) History Provided By: Patient, Medical Record [facility] Narrative PAST MEDICAL HISTORY: GERD and history of CVA in the past. The patient also has history of anxiety as well as mood disorder as well as NIDDM, insomnia, hypertension, BPH, and urinary retention. Social History: Denies: smoking, alcohol use, drug use, other ROS: no fevers or chills, or night sweats Physical Exam Vital Signs Last 24 Hour Vital Signs Date Time Temp Pulse Resp B/P (MAP) Pulse Ox O2 Delivery O2 Flow Rate FiO2 03/18/18 08:55 97.9 58 20 125/75 (92) 95 97.9 03/18/18 08:12 61 193/71 03/18/18 08:12 193/71 03/18/18 07:39 Room Air 03/18/18 04:03 97.4 61 20 193/71 (111) 95 97.4 03/18/18 01:03 169/79 03/18/18 00:00 97.9 59 18 169/79 (109) 95 97.9 03/17/18 21:12 60 162/83 03/17/18 21:00 Room Air 03/17/18 20:00 97.7 60 20 162/83 (109) 95 97.7 03/17/18 17:00 159/62 (94) 03/17/18 16:35 179/80 03/17/18 16:27 97.7 63 20 179/80 (113) 95 97.7 03/17/18 12:14 97.8 64 18 154/79 (104) 95 97.8 Laboratory Tests Test 03/17/18 06:30 03/17/18 06:35 Hemoglobin A1c 7.7 % (4.3-6.0) H Uric Acid 6.9 MG/DL (2.6-7.2) Phosphorus Level 4.0 MG/DL (2.5-4.9) Magnesium Level 1.8 MG/DL (1.8-2.4) Gamma Glutamyl Transpeptidase 19 U/L (5-85) Total Creatine Kinase 30 U/L (26-308) C-Reactive Protein, Quantitative 2.5 mg/dL (0.00-0.90) H Pro-B-Type Natriuretic Peptide 994 pg/mL (0-125) H Triglycerides Level 143 MG/DL (30-150) Cholesterol Level 162 MG/DL (< 200) LDL Cholesterol 101 mg/dL (<100) H HDL Cholesterol 34 MG/DL (40-60) L Cholesterol/HDL Ratio 4.8 (3.3-4.4) H Vitamin B12 Level 283 PG/ML (193-986) Thyroid Stimulating Hormone (TSH) 1.165 uiU/mL (0.358-3.740) White Blood Count 7.2 K/UL (4.8-10.8) Red Blood Count 3.07 M/UL (4.70-6.10) L Hemoglobin 8.5 G/DL (14.2-18.0) L Hematocrit 26.7 % (42.0-52.0) L Mean Corpuscular Volume 87 FL (80-99) Mean Corpuscular Hemoglobin 27.7 PG (27.0-31.0) Mean Corpuscular Hemoglobin Concent 31.9 G/DL (32.0-36.0) L Red Cell Distribution Width 12.9 % (11.6-14.8) Platelet Count 248 K/UL (150-450) Mean Platelet Volume 5.7 FL (6.5-10.1) L Neutrophils (%) (Auto) 57.3 % (45.0-75.0) Lymphocytes (%) (Auto) 27.9 % (20.0-45.0) Monocytes (%) (Auto) 10.4 % (1.0-10.0) H Eosinophils (%) (Auto) 3.7 % (0.0-3.0) H Basophils (%) (Auto) 0.7 % (0.0-2.0) Sodium Level 141 MMOL/L (136-145) Potassium Level 3.6 MMOL/L (3.5-5.1) Chloride Level 110 MMOL/L (98-107) H Carbon Dioxide Level 24 MMOL/L (21-32) Anion Gap 7 mmol/L (5-15) Blood Urea Nitrogen 28 mg/dL (7-18) H Creatinine 2.9 MG/DL (0.55-1.30) H Estimat Glomerular Filtration Rate 22.1 mL/min (>60) Glucose Level 108 MG/DL (74-106) #H Calcium Level 7.9 MG/DL (8.5-10.1) L Iron Level 55 ug/dL (50-175) Total Iron Binding Capacity 275 ug/dL (250-450) Percent Iron Saturation 20 % (15-50) Unsaturated Iron Binding 220 ug/dL (112-346) Ferritin 17 NG/ML (8-388) Total Bilirubin 0.2 MG/DL (0.2-1.0) Aspartate Amino Transf (AST/SGOT) 9 U/L (15-37) L Alanine Aminotransferase (ALT/SGPT) 14 U/L (12-78) Alkaline Phosphatase 100 U/L (46-116) Total Protein 6.1 G/DL (6.4-8.2) L Albumin 2.1 G/DL (3.4-5.0) L Globulin 4.0 g/dL Albumin/Globulin Ratio 0.5 (1.0-2.7) L Folate 4.3 NG/ML (8.6-58.9) L General Appearance: well appearing Head: normocephalic EENT: PERRL/EOMI, normal ENT inspection Neck: supple Respiratory: normal breath sounds Cardiovascular: normal rate Gastrointestinal: normal inspection, non tender, soft, normal bowel sounds, nd Rectal: deferred Genitourinary: deferred Musculoskeletal: normal inspection, back normal Neurologic: normal inspection, alert, oriented x3, responsive Psychiatric: normal inspection, judgement/insight normal Skin: normal inspection, normal color, no rash, warm/dry Lymphatic: normal inspection, no adenopathy Current Medications Medications (Trade) Dose Ordered Sig/Martin Route PRN Reason Start Time Stop Time Status Last Admin Dose Admin Acetaminophen (Tylenol) 500 mg Q6H PRN ORAL Mild Pain/Temp > 100.5 03/16/18 17:30 04/15/18 17:29 03/16/18 18:25 Acetaminophen/ Hydrocodone Bitart ([place] 5/325) 1 tab Q4H PRN ORAL Moderate Pain (Pain Scale 4-6) 03/16/18 20:15 03/23/18 20:14 03/17/18 08:22 Alprazolam (Xanax) 0.5 mg EVERY 8 HOURS PRN ORAL For Anxiety 03/16/18 23:45 03/23/18 23:44 03/16/18 23:56 Aspirin (Ecotrin) 81 mg DAILY ORAL 03/18/18 09:00 04/17/18 08:59 Ceftriaxone Sodium 1 gm/ Dextrose 55 ml @ 110 mls/hr Q24H IVPB 03/17/18 17:00 03/24/18 16:59 Clonidine HCl (Catapres Tab) 0.1 mg Q6H PRN ORAL SBP>170 03/17/18 09:30 04/16/18 09:29 03/17/18 09:36 Cyanocobalamin (Vitamin B12) 1,000 mcg ONCE IM 03/17/18 15:00 03/17/18 16:30 03/17/18 15:15 Dextrose (Dextrose 50%) 25 ml PRN PRN IV Hypoglycemia 03/17/18 13:00 04/16/18 12:59 Dextrose (Dextrose 50%) 50 ml PRN PRN IV Hypoglycemia 03/17/18 13:00 04/16/18 12:59 Docusate Sodium (Colace) 100 mg THREE TIMES A DAY ORAL 03/17/18 18:00 04/16/18 17:59 Escitalopram Oxalate (Lexapro) 10 mg DAILY ORAL 03/18/18 09:00 04/17/18 08:59 Folic Acid (Folate) 2 mg DAILY ORAL 03/18/18 09:00 04/17/18 08:59 Insulin Aspart (NovoLOG) BEFORE MEALS AND HS SUBQ 03/17/18 16:30 04/16/18 16:29 Metoclopramide HCl (Reglan) 10 mg Q8H PRN IVP Nausea & Vomiting 03/17/18 14:45 04/16/18 14:44 Metoprolol Tartrate (Lopressor) 25 mg EVERY 12 HOURS ORAL 03/17/18 21:00 04/16/18 20:59 Mirtazapine (Remeron) 15 mg BEDTIME ORAL 03/16/18 23:45 04/15/18 23:44 03/16/18 23:56 Ondansetron HCl (Zofran) 4 mg Q6H PRN IVP Nausea & Vomiting 03/16/18 17:30 04/15/18 17:29 03/16/18 17:56 Pantoprazole (Protonix) 40 mg DAILY IVP 03/17/18 15:00 04/16/18 14:59 03/17/18 15:14 Quetiapine Fumarate (SEROquel) 25 mg Q6H PRN ORAL agitation 03/17/18 13:00 04/16/18 12:59 Sodium Chloride 1,000 ml @ 75 mls/hr [id number] IV 03/17/18 15:00 04/16/18 14:59 Tamsulosin HCl (Flomax) 0.4 mg BEDTIME ORAL 03/17/18 21:00 04/16/18 20:59 Vancomycin HCl (Vanco rx to dose) 1 ea DAILY PRN MISC Per rx protocol 03/17/18 12:15 04/16/18 12:14 Assessment/Recs: (1) Anemia due to iron deficiency -- has been started on iv iron --> anemia panel has been reviewed thus far, ferritin is low, total 3 doses --> reviewed peripheral smear in system, no hemolysis is noted --> hgb goal >7 (2) Anemia due to Folate deficiency --> folic acid 1mg po daily (3) Abdominal pain --> infection potentially is on abx (4) Sepsis (5) Vomiting --> will consider endoscopy if medical management fails, most likely gastroparesis (6) H/O: stroke (7) Gastroparesis due to DM (8) Diabetes mellitus --> DM management (9) R sided weakness s/p CVA Appreciate consultation greatly! Luiz Zavala MD Mar 18, 2018 11:00
--- NOTE | 2018-03-18 11:11 | GI Progress Note ---
Assessment/Plan Problems: (1) Abdominal pain ICD Codes: R10.9 - Unspecified abdominal pain SNOMED: 72044122 (2) Folate deficiency ICD Codes: E53.8 - Deficiency of other specified B group vitamins SNOMED: 108864174 (3) Diabetes mellitus ICD Codes: E11.9 - Type 2 diabetes mellitus without complications SNOMED: 76959156 (4) Gastroparesis due to DM ICD Codes: E11.43 - Type 2 diabetes mellitus with diabetic autonomic (poly) neuropathy; K31.84 - Gastroparesis SNOMED: 15370685, 972244764 (5) Hyperglycemia ICD Codes: R73.9 - Hyperglycemia, unspecified SNOMED: 86714075 (6) Vomiting ICD Codes: R11.10 - Vomiting, unspecified SNOMED: 995735959, 476826932 Qualifiers: Qualified Codes: R11.2 - Nausea with vomiting, unspecified (7) H/O: stroke ICD Codes: Z86.73 - Personal history of transient ischemic attack (TIA), and cerebral infarction without residual deficits SNOMED: 913754128, 263261752 Status: stable Status Narrative Discussed with Dr. Franks. Assessment/Plan R sided weakness s/p CVA anemia work up reviewed >> folate deficiency DM elevated CRP renal insufficiency KUB unremarkable Hx of UC will consider endoscopy if medical management fails, most likely gastroparesis DM management reglan IV for N/V/GI motility PRN adv diet as tolerated folate monitor H&H, prn transfusions ppi fu labs, ESR The patient was seen and examined at bedside and all new and available data was reviewed in the patients chart. I agree with the above findings, impression and plan. (Patient seen earlier today. Signature stamp does not reflect patient encounter time.). - Griffin Franks MD Subjective Gastrointestinal/Abdominal: Reports: no symptoms Objective Last 24 Hour Vital Signs Date Time Temp Pulse Resp B/P (MAP) Pulse Ox O2 Delivery O2 Flow Rate FiO2 03/18/18 08:55 97.9 58 20 125/75 (92) 95 97.9 03/18/18 08:12 61 193/71 03/18/18 08:12 193/71 03/18/18 07:39 Room Air 03/18/18 04:03 97.4 61 20 193/71 (111) 95 97.4 03/18/18 01:03 169/79 03/18/18 00:00 97.9 59 18 169/79 (109) 95 97.9 03/17/18 21:12 60 162/83 03/17/18 21:00 Room Air 03/17/18 20:00 97.7 60 20 162/83 (109) 95 97.7 03/17/18 17:00 159/62 (94) 03/17/18 16:35 179/80 03/17/18 16:27 97.7 63 20 179/80 (113) 95 97.7 03/17/18 12:14 97.8 64 18 154/79 (104) 95 97.8 Intake and Output 03/17/18 03/18/18 19:00 07:00 Intake Total 1565 ml 1155 ml Output Total 1900 ml 2200 ml Balance -335 ml -1045 ml Intake Oral 600 ml 480 ml IV Total 965 ml 675 ml Output Urine Total 1900 ml 2200 ml Laboratory Tests Test 03/18/18 04:50 White Blood Count 8.2 K/UL (4.8-10.8) Red Blood Count 3.33 M/UL (4.70-6.10) L Hemoglobin 9.3 G/DL (14.2-18.0) L Hematocrit 28.9 % (42.0-52.0) L Mean Corpuscular Volume 87 FL (80-99) Mean Corpuscular Hemoglobin 28.1 PG (27.0-31.0) Mean Corpuscular Hemoglobin Concent 32.4 G/DL (32.0-36.0) Red Cell Distribution Width 12.7 % (11.6-14.8) Platelet Count 241 K/UL (150-450) Mean Platelet Volume 5.7 FL (6.5-10.1) L Neutrophils (%) (Auto) 62.8 % (45.0-75.0) Lymphocytes (%) (Auto) 22.6 % (20.0-45.0) Monocytes (%) (Auto) 10.9 % (1.0-10.0) H Eosinophils (%) (Auto) 3.1 % (0.0-3.0) H Basophils (%) (Auto) 0.6 % (0.0-2.0) Erythrocyte Sedimentation Rate Pending Sodium Level 141 MMOL/L (136-145) Potassium Level 4.1 MMOL/L (3.5-5.1) Chloride Level 108 MMOL/L (98-107) H Carbon Dioxide Level 24 MMOL/L (21-32) Anion Gap 9 mmol/L (5-15) Blood Urea Nitrogen 30 mg/dL (7-18) H Creatinine 3.0 MG/DL (0.55-1.30) H Estimat Glomerular Filtration Rate 21.2 mL/min (>60) Glucose Level 179 MG/DL (74-106) H Uric Acid 6.5 MG/DL (2.6-7.2) Calcium Level 8.0 MG/DL (8.5-10.1) L Phosphorus Level 4.2 MG/DL (2.5-4.9) Magnesium Level 1.9 MG/DL (1.8-2.4) Total Bilirubin 0.3 MG/DL (0.2-1.0) Aspartate Amino Transf (AST/SGOT) 7 U/L (15-37) L Alanine Aminotransferase (ALT/SGPT) 14 U/L (12-78) Alkaline Phosphatase 101 U/L (46-116) Pro-B-Type Natriuretic Peptide 3164 pg/mL (0-125) H Total Protein 6.4 G/DL (6.4-8.2) Albumin 2.2 G/DL (3.4-5.0) L Globulin 4.2 g/dL Albumin/Globulin Ratio 0.5 (1.0-2.7) L R side hemiplegia s/p CVA anemia work up reviewed >> folate deficiency DM elevated CRP renal insufficiency KUB unremarkable Hx of ?UC will consider endoscopy if medical management fails, most likely gastroparesis DM management reglan IV for N/V/GI motility PRN adv diet as tolerated folate monitor H&H, prn transfusions ppi fu labs, ESR Height (Feet): 5 Height (Inches): 6.00 Weight (Pounds): 183 General Appearance: WD/WN, no apparent distress, alert Cardiovascular: normal rate Respiratory/Chest: normal breath sounds, no respiratory distress Abdominal Exam: normal bowel sounds, non tender, soft Extremities: normal range of motion, non-tender Oralia Levin NP Mar 18, 2018 11:11
[2018-03-18 11:59] VITALS: BP 126/76
--- NOTE | 2018-03-18 12:42 | General Progress Note ---
Assessment/Plan Problem List: (1) Renal insufficiency ICD Codes: N28.9 - Disorder of kidney and ureter, unspecified SNOMED: 393095790, 291430733 (2) UTI (urinary tract infection) ICD Codes: N39.0 - Urinary tract infection, site not specified SNOMED: 53059454, 063855835 Qualifiers: Qualified Codes: T83.511A - Infection and inflammatory reaction due to indwelling urethral catheter, initial encounter; N39.0 - Urinary tract infection , site not specified (3) Vomiting ICD Codes: R11.10 - Vomiting, unspecified SNOMED: 574735639, 892269219 Qualifiers: Qualified Codes: R11.2 - Nausea with vomiting, unspecified (4) H/O: stroke ICD Codes: Z86.73 - Personal history of transient ischemic attack (TIA), and cerebral infarction without residual deficits SNOMED: 583916688, 125012945 (5) Abdominal pain ICD Codes: R10.9 - Unspecified abdominal pain SNOMED: 74596453 Status: progressing Assessment/Plan elevated bp uti contracture bp improving dm htn no vomit today ABX PER ID Subjective ROS Limited/Unobtainable: Yes Allergies: Coded Allergies: No Known Allergies (Unverified , 03/16/18) Objective Last 24 Hour Vital Signs Date Time Temp Pulse Resp B/P (MAP) Pulse Ox O2 Delivery O2 Flow Rate FiO2 03/18/18 11:59 97.8 61 20 126/76 (93) 98 97.8 03/18/18 08:55 97.9 58 20 125/75 (92) 95 97.9 03/18/18 08:12 61 193/71 03/18/18 08:12 193/71 03/18/18 07:39 Room Air 03/18/18 04:03 97.4 61 20 193/71 (111) 95 97.4 03/18/18 01:03 169/79 03/18/18 00:00 97.9 59 18 169/79 (109) 95 97.9 03/17/18 21:12 60 162/83 03/17/18 21:00 Room Air 03/17/18 20:00 97.7 60 20 162/83 (109) 95 97.7 03/17/18 17:00 159/62 (94) 03/17/18 16:35 179/80 03/17/18 16:27 97.7 63 20 179/80 (113) 95 97.7 Intake and Output 03/17/18 03/18/18 19:00 07:00 Intake Total 1565 ml 1155 ml Output Total 1900 ml 2200 ml Balance -335 ml -1045 ml Intake Oral 600 ml 480 ml IV Total 965 ml 675 ml Output Urine Total 1900 ml 2200 ml Laboratory Tests 03/18/18 04:50: White Blood Count 8.2, Red Blood Count 3.33L, Hemoglobin 9.3L, Hematocrit 28.9L , Mean Corpuscular Volume 87, Mean Corpuscular Hemoglobin 28.1, Mean Corpuscular Hemoglobin Concent 32.4, Red Cell Distribution Width 12.7, Platelet Count 241, Mean Platelet Volume 5.7L, Neutrophils (%) (Auto) 62.8, Lymphocytes ( %) (Auto) 22.6, Monocytes (%) (Auto) 10.9H, Eosinophils (%) (Auto) 3.1H, Basophils (%) (Auto) 0.6, Erythrocyte Sedimentation Rate 30H, Sodium Level 141, Potassium Level 4.1, Chloride Level 108H, Carbon Dioxide Level 24, Anion Gap 9, Blood Urea Nitrogen 30H, Creatinine 3.0H, Estimat Glomerular Filtration Rate 21.2, Glucose Level 179H, Uric Acid 6.5, Calcium Level 8.0L, Phosphorus Level 4.2, Magnesium Level 1.9, Total Bilirubin 0.3, Aspartate Amino Transf (AST/SGOT ) 7L, Alanine Aminotransferase (ALT/SGPT) 14, Alkaline Phosphatase 101, Pro-B- Type Natriuretic Peptide 3164H, Total Protein 6.4, Albumin 2.2L, Globulin 4.2, Albumin/Globulin Ratio 0.5L Height (Feet): 5 Height (Inches): 6.00 Weight (Pounds): 183 General Appearance: confused Respiratory/Chest: lungs clear Abdomen: soft Mei Carreon MD Mar 18, 2018 12:42
--- NOTE | 2018-03-18 13:18 | Nephrology Progress Note ---
Assessment/Plan Problem List: (1) Diabetic nephropathy (2) Vomiting (3) Gastroparesis due to DM (4) Anemia in chronic kidney disease (CKD) (5) Hypertension associated with chronic kidney disease due to type 2 diabetes mellitus Assessment Renal failure, Diabetic Nephropathy Vomiting ? Gastroparesis UTI (urinary tract infection) H/O: stroke Anemia DM Plan Reglan PO BP med adjustment IV Iron Add hydralazine Protonix PO Hydrate slowly Kidney AMINTA negative 2D Echo good ej fx PO folic acid per orders Subjective ROS Limited/Unobtainable: No Constitutional: Reports: malaise, weakness Objective Objective Last 24 Hour Vital Signs Date Time Temp Pulse Resp B/P (MAP) Pulse Ox O2 Delivery O2 Flow Rate FiO2 03/18/18 11:59 97.8 61 20 126/76 (93) 98 97.8 03/18/18 08:55 97.9 58 20 125/75 (92) 95 97.9 03/18/18 08:12 61 193/71 03/18/18 08:12 193/71 03/18/18 07:39 Room Air 03/18/18 04:03 97.4 61 20 193/71 (111) 95 97.4 03/18/18 01:03 169/79 03/18/18 00:00 97.9 59 18 169/79 (109) 95 97.9 03/17/18 21:12 60 162/83 03/17/18 21:00 Room Air 03/17/18 20:00 97.7 60 20 162/83 (109) 95 97.7 03/17/18 17:00 159/62 (94) 03/17/18 16:35 179/80 03/17/18 16:27 97.7 63 20 179/80 (113) 95 97.7 Intake and Output 03/17/18 03/18/18 19:00 07:00 Intake Total 1565 ml 1155 ml Output Total 1900 ml 2200 ml Balance -335 ml -1045 ml Intake Oral 600 ml 480 ml IV Total 965 ml 675 ml Output Urine Total 1900 ml 2200 ml Laboratory Tests 03/18/18 04:50: White Blood Count 8.2, Red Blood Count 3.33L, Hemoglobin 9.3L, Hematocrit 28.9L , Mean Corpuscular Volume 87, Mean Corpuscular Hemoglobin 28.1, Mean Corpuscular Hemoglobin Concent 32.4, Red Cell Distribution Width 12.7, Platelet Count 241, Mean Platelet Volume 5.7L, Neutrophils (%) (Auto) 62.8, Lymphocytes ( %) (Auto) 22.6, Monocytes (%) (Auto) 10.9H, Eosinophils (%) (Auto) 3.1H, Basophils (%) (Auto) 0.6, Erythrocyte Sedimentation Rate 30H, Sodium Level 141, Potassium Level 4.1, Chloride Level 108H, Carbon Dioxide Level 24, Anion Gap 9, Blood Urea Nitrogen 30H, Creatinine 3.0H, Estimat Glomerular Filtration Rate 21.2, Glucose Level 179H, Uric Acid 6.5, Calcium Level 8.0L, Phosphorus Level 4.2, Magnesium Level 1.9, Total Bilirubin 0.3, Aspartate Amino Transf (AST/SGOT ) 7L, Alanine Aminotransferase (ALT/SGPT) 14, Alkaline Phosphatase 101, Pro-B- Type Natriuretic Peptide 3164H, Total Protein 6.4, Albumin 2.2L, Globulin 4.2, Albumin/Globulin Ratio 0.5L Height (Feet): 5 Height (Inches): 6.00 Weight (Pounds): 183 General Appearance: no apparent distress, lethargic Cardiovascular: normal rate Respiratory/Chest: decreased breath sounds Abdomen: soft Royce Mehta MD Mar 18, 2018 13:18
--- NOTE | 2018-03-18 13:23 | Infectious Diseases Prog Note ---
Assessment/Plan Assessment/Plan A: 1. positive blood culture likely contamination 2. Pyuria, likely UTI. 3. Acute renal failure, chronic kidney disease 4. Anemia. 5. Diabetes mellitus. 6. Hypertension. 7. Prostatic hypertrophy P; Continue Rocephin Discontinue Vancomycin Will f/u cultures Subjective ROS Limited/Unobtainable: No Constitutional: Reports: no symptoms Respiratory: Reports: no symptoms Cardiovascular: Reports: no symptoms Gastrointestinal/Abdominal: Reports: no symptoms Genitourinary: Reports: no symptoms Allergies: Coded Allergies: No Known Allergies (Unverified , 03/16/18) Objective Vital Signs Last 24 Hour Vital Signs Date Time Temp Pulse Resp B/P (MAP) Pulse Ox O2 Delivery O2 Flow Rate FiO2 03/18/18 11:59 97.8 61 20 126/76 (93) 98 97.8 03/18/18 08:55 97.9 58 20 125/75 (92) 95 97.9 03/18/18 08:12 61 193/71 03/18/18 08:12 193/71 03/18/18 07:39 Room Air 03/18/18 04:03 97.4 61 20 193/71 (111) 95 97.4 03/18/18 01:03 169/79 03/18/18 00:00 97.9 59 18 169/79 (109) 95 97.9 03/17/18 21:12 60 162/83 03/17/18 21:00 Room Air 03/17/18 20:00 97.7 60 20 162/83 (109) 95 97.7 03/17/18 17:00 159/62 (94) 03/17/18 16:35 179/80 03/17/18 16:27 97.7 63 20 179/80 (113) 95 97.7 Height (Feet): 5 Height (Inches): 6.00 Weight (Pounds): 183 General Appearance: no acute distress HEENT: mucous membranes moist Respiratory/Chest: lungs clear Cardiovascular: normal rate Abdomen: soft, non tender Extremities: no edema Neurologic/Psychiatric: alert, responsive Microbiology Date/Time Source Procedure Growth Status 03/16/18 12:40 Blood Blood Culture - Preliminary Staphylococcus Sp Coag Neg Resulted 03/16/18 12:40 Blood Blood Culture - Preliminary NO GROWTH AFTER 24 HOURS Resulted 03/16/18 13:45 Urine,Clean Catch Urine Culture - Preliminary Gram Negative Bacillus 1 Gram Negative Bacillus 2 Resulted 03/16/18 15:35 Rectum VRE Culture Pending Resulted 03/16/18 15:35 Rectum - Preliminary Resulted Laboratory Tests Test 03/18/18 04:50 White Blood Count 8.2 K/UL (4.8-10.8) Red Blood Count 3.33 M/UL (4.70-6.10) L Hemoglobin 9.3 G/DL (14.2-18.0) L Hematocrit 28.9 % (42.0-52.0) L Mean Corpuscular Volume 87 FL (80-99) Mean Corpuscular Hemoglobin 28.1 PG (27.0-31.0) Mean Corpuscular Hemoglobin Concent 32.4 G/DL (32.0-36.0) Red Cell Distribution Width 12.7 % (11.6-14.8) Platelet Count 241 K/UL (150-450) Mean Platelet Volume 5.7 FL (6.5-10.1) L Neutrophils (%) (Auto) 62.8 % (45.0-75.0) Lymphocytes (%) (Auto) 22.6 % (20.0-45.0) Monocytes (%) (Auto) 10.9 % (1.0-10.0) H Eosinophils (%) (Auto) 3.1 % (0.0-3.0) H Basophils (%) (Auto) 0.6 % (0.0-2.0) Erythrocyte Sedimentation Rate 30 MM/HR (0-20) H Sodium Level 141 MMOL/L (136-145) Potassium Level 4.1 MMOL/L (3.5-5.1) Chloride Level 108 MMOL/L (98-107) H Carbon Dioxide Level 24 MMOL/L (21-32) Anion Gap 9 mmol/L (5-15) Blood Urea Nitrogen 30 mg/dL (7-18) H Creatinine 3.0 MG/DL (0.55-1.30) H Estimat Glomerular Filtration Rate 21.2 mL/min (>60) Glucose Level 179 MG/DL (74-106) H Uric Acid 6.5 MG/DL (2.6-7.2) Calcium Level 8.0 MG/DL (8.5-10.1) L Phosphorus Level 4.2 MG/DL (2.5-4.9) Magnesium Level 1.9 MG/DL (1.8-2.4) Total Bilirubin 0.3 MG/DL (0.2-1.0) Aspartate Amino Transf (AST/SGOT) 7 U/L (15-37) L Alanine Aminotransferase (ALT/SGPT) 14 U/L (12-78) Alkaline Phosphatase 101 U/L (46-116) Pro-B-Type Natriuretic Peptide 3164 pg/mL (0-125) H Total Protein 6.4 G/DL (6.4-8.2) Albumin 2.2 G/DL (3.4-5.0) L Globulin 4.2 g/dL Albumin/Globulin Ratio 0.5 (1.0-2.7) L Current Medications Medications (Trade) Dose Ordered Sig/Martin Route PRN Reason Start Time Stop Time Status Last Admin Dose Admin Acetaminophen (Tylenol) 500 mg Q6H PRN ORAL Mild Pain/Temp > 100.5 03/16/18 17:30 04/15/18 17:29 03/16/18 18:25 Acetaminophen/ Hydrocodone Bitart ([place] 5/325) 1 tab Q4H PRN ORAL Moderate Pain (Pain Scale 4-6) 03/16/18 20:15 03/23/18 20:14 03/18/18 04:48 Alprazolam (Xanax) 0.5 mg EVERY 8 HOURS PRN ORAL For Anxiety 03/16/18 23:45 03/23/18 23:44 03/17/18 21:09 Aspirin (Ecotrin) 81 mg DAILY ORAL 03/18/18 09:00 04/17/18 08:59 03/18/18 08:12 Ceftriaxone Sodium 1 gm/ Dextrose 55 ml @ 110 mls/hr Q24H IVPB 03/17/18 17:00 03/24/18 16:59 03/17/18 17:28 Clonidine HCl (Catapres Tab) 0.1 mg Q6H PRN ORAL SBP>170 03/17/18 09:30 04/16/18 09:29 03/18/18 08:12 Dextrose (Dextrose 50%) 25 ml PRN PRN IV Hypoglycemia 03/17/18 13:00 04/16/18 12:59 Dextrose (Dextrose 50%) 50 ml PRN PRN IV Hypoglycemia 03/17/18 13:00 04/16/18 12:59 Docusate Sodium (Colace) 100 mg THREE TIMES A DAY ORAL 03/17/18 18:00 04/16/18 17:59 03/18/18 12:16 Escitalopram Oxalate (Lexapro) 10 mg DAILY ORAL 03/18/18 09:00 04/17/18 08:59 03/18/18 08:11 Folic Acid (Folate) 2 mg DAILY ORAL 03/18/18 09:00 04/17/18 08:59 03/18/18 08:12 Hydralazine HCl (Apresoline) 25 mg Q8HR ORAL 03/18/18 14:00 04/17/18 13:59 UNV Insulin Aspart (NovoLOG) BEFORE MEALS AND HS SUBQ 03/17/18 16:30 04/16/18 16:29 03/18/18 11:52 Iron Sucrose 100 mg/Sodium Chloride 60 ml @ 240 mls/hr BEDTIME IVPB 03/18/18 21:00 03/19/18 20:59 UNV Iron Sucrose 200 mg/Sodium Chloride 120 ml @ 240 mls/hr ONCE ONCE IVPB 03/18/18 13:15 03/18/18 13:44 UNV Metoclopramide HCl (Reglan) 10 mg Q8H PRN IVP Nausea & Vomiting 03/17/18 14:45 04/16/18 14:44 Metoclopramide HCl (Reglan) 10 mg THREE TIMES A DAY ORAL 03/18/18 13:15 04/17/18 13:14 UNV Metoprolol Tartrate (Lopressor) 25 mg EVERY 12 HOURS ORAL 03/17/18 21:00 04/16/18 20:59 03/18/18 08:12 Mirtazapine (Remeron) 15 mg BEDTIME ORAL 03/16/18 23:45 04/15/18 23:44 03/17/18 21:09 Pantoprazole (Protonix) 40 mg EVERY 12 HOURS ORAL 03/18/18 21:00 04/17/18 20:59 UNV Quetiapine Fumarate (SEROquel) 25 mg Q6H PRN ORAL agitation 03/17/18 13:00 04/16/18 12:59 Sodium Chloride 1,000 ml @ 75 mls/hr [id number] IV 03/17/18 15:00 04/16/18 14:59 03/18/18 04:47 Tamsulosin HCl (Flomax) 0.4 mg BEDTIME ORAL 03/17/18 21:00 04/16/18 20:59 03/17/18 21:10 Vancomycin HCl (Vanco rx to dose) 1 ea DAILY PRN MISC Per rx protocol 03/17/18 12:15 04/16/18 12:14 Mike Verde MD Mar 18, 2018 13:23
[2018-03-18] MEDS: HydrALAZINE 25mg tab ORAL SCH ×2 (13:37→21:14)
--- NOTE | 2018-03-18 13:42 | General Progress Note ---
Assessment/Plan Assessment/Plan Encephalopathy due to [facility] [place] Anxiety d.o xanax prn seroquel prn Subjective Date patient seen: Mar 18, 2018 Neurologic/Psychiatric: Reports: anxiety, depressed, emotional problems Allergies: Coded Allergies: No Known Allergies (Unverified , 03/16/18) Objective Last 24 Hour Vital Signs Date Time Temp Pulse Resp B/P (MAP) Pulse Ox O2 Delivery O2 Flow Rate FiO2 03/18/18 13:37 126/76 03/18/18 11:59 97.8 61 20 126/76 (93) 98 97.8 03/18/18 08:55 97.9 58 20 125/75 (92) 95 97.9 03/18/18 08:12 61 193/71 03/18/18 08:12 193/71 03/18/18 07:39 Room Air 03/18/18 04:03 97.4 61 20 193/71 (111) 95 97.4 03/18/18 01:03 169/79 03/18/18 00:00 97.9 59 18 169/79 (109) 95 97.9 03/17/18 21:12 60 162/83 03/17/18 21:00 Room Air 03/17/18 20:00 97.7 60 20 162/83 (109) 95 97.7 03/17/18 17:00 159/62 (94) 03/17/18 16:35 179/80 03/17/18 16:27 97.7 63 20 179/80 (113) 95 97.7 Intake and Output 03/17/18 03/18/18 19:00 07:00 Intake Total 1565 ml 1155 ml Output Total 1900 ml 2200 ml Balance -335 ml -1045 ml Intake Oral 600 ml 480 ml IV Total 965 ml 675 ml Output Urine Total 1900 ml 2200 ml Laboratory Tests 03/18/18 04:50: White Blood Count 8.2, Red Blood Count 3.33L, Hemoglobin 9.3L, Hematocrit 28.9L , Mean Corpuscular Volume 87, Mean Corpuscular Hemoglobin 28.1, Mean Corpuscular Hemoglobin Concent 32.4, Red Cell Distribution Width 12.7, Platelet Count 241, Mean Platelet Volume 5.7L, Neutrophils (%) (Auto) 62.8, Lymphocytes ( %) (Auto) 22.6, Monocytes (%) (Auto) 10.9H, Eosinophils (%) (Auto) 3.1H, Basophils (%) (Auto) 0.6, Erythrocyte Sedimentation Rate 30H, Sodium Level 141, Potassium Level 4.1, Chloride Level 108H, Carbon Dioxide Level 24, Anion Gap 9, Blood Urea Nitrogen 30H, Creatinine 3.0H, Estimat Glomerular Filtration Rate 21.2, Glucose Level 179H, Uric Acid 6.5, Calcium Level 8.0L, Phosphorus Level 4.2, Magnesium Level 1.9, Total Bilirubin 0.3, Aspartate Amino Transf (AST/SGOT ) 7L, Alanine Aminotransferase (ALT/SGPT) 14, Alkaline Phosphatase 101, Pro-B- Type Natriuretic Peptide 3164H, Total Protein 6.4, Albumin 2.2L, Globulin 4.2, Albumin/Globulin Ratio 0.5L Height (Feet): 5 Height (Inches): 6.00 Weight (Pounds): 183 Nell Daniels MD Mar 18, 2018 13:42
--- NOTE | 2018-03-18 14:51 | Cardiology Report ---
APPROVED REPORT EXAM: Two-dimensional and M-mode echocardiogram with Doppler and color Doppler. INDICATION Congestive Heart Failure M-Mode DIMENSIONS IVSd2.0 (0.7-1.1cm)Left Atrium (MM)4.0 (1.6-4.0cm) LVDd5.2 (3.5-5.6cm)Aortic Root3.7 (2.0-3.7cm) PWd1.9 (0.7-1.1cm)Aortic Cusp Exc.1.9 (1.5-2.0cm) IVSs2.5 cm LVDs4.0 (2.5-4.0cm) PWs2.4 cm Technically difficult study due to pts position. Normal left ventricular chamber size, systolic function and wall motion as well visualized Study quality precludes accurate assessment of regional wall motion. Left ventricular ejection fraction estimated to be 55-60 %. Moderate left ventricular hypertrophy by 2-D. No evidence of pericardial effusion. Mild left atrial enlargement . Right cardiac chamber size are within normal limits. Focal aortic valve sclerosis with adequate cusp excursion. Thickened mitral valve leaflets with normal excursion. Mitral annulus and aortic root calcification. Pulmonic valve not well visualized. Normal tricuspid valve structure. IVC at size 1.7 without physiologic collapse. A color flow and spectral Doppler study was performed and revealed: No aortic regurgitation. Trace mitral regurgitation. Mitral diastolic velocities suggest reduced left ventricular relaxation c/w mild LV diastolic dysfunction (Grade I ). Trace tricuspid regurgitation. Tricuspid systolic velocities suggests peak right ventricular systolic pressure of 24 mmHg, No Pulmonic regurgitation present.
[2018-03-18] MEDS ORDERED: Iron Sucrose 200 MG in NS 110 ML IV ONE (15:00)
[2018-03-18 16:00] VITALS: BP 124/80
[2018-03-18] MEDS: cefTRIAXone 1 GM in D5W 55 ML IVPB SCH (17:16)
[2018-03-18 20:00] VITALS: BP 208/85
[2018-03-18] MEDS ORDERED: Epogen (for non ESRD use) SUBQ SCH (21:00)
[2018-03-18] MEDS ORDERED: Iron Sucrose 100 MG in NS 55 ML IV SCH (21:00)
[2018-03-18] MEDS: Tamsulosin 0.4mg cap ORAL SCH (21:14)
[2018-03-18] MEDS: ALPRAZolam 0.5mg tab ORAL PRN (21:21)
[2018-03-19] VITALS (9 sets, daily range): BP systolic 140–208; BP diastolic 69–86
[2018-03-19] MEDS: Norco 5mg/325mg tab ORAL PRN ×4 (00:28→20:58)
[2018-03-19] MEDS: Acetaminophen 500mg (ES) tab ORAL PRN (03:41)
[2018-03-19 05:55] LABS: BASOPHILS % (AUTO) 0.8 % (0.0-2.0); EOSINOPHILS % (AUTO) 3.4 % (0.0-3.0); HEMATOCRIT 27.3 % (42.0-52.0); HEMOGLOBIN 8.7 G/DL (14.2-18.0); LYMPHOCYTES % (AUTO) 21.3 % (20.0-45.0); MEAN CORPUSCULAR VOLUME 86 FL (80-99); MONOCYTES % (AUTO) 9.8 % (1.0-10.0); NEUTROPHILS % (AUTO) 64.7 % (45.0-75.0); PLATELET COUNT 251 K/UL (150-450); RED BLOOD COUNT 3.18 M/UL (4.70-6.10); RED CELL DISTRIBUTION WIDTH 12.7 % (11.6-14.8); WHITE BLOOD COUNT 8.7 K/UL (4.8-10.8)
[2018-03-19] MEDS: HydrALAZINE 25mg tab ORAL SCH ×2 (06:06→15:17)
[2018-03-19] MEDS: NovoLOG Insulin Flexpen SUBQ SCH ×4 (06:09→20:51)
[2018-03-19 06:13] LABS: ANION GAP 8 mmol/L (5-15); BLOOD UREA NITROGEN 34 mg/dL (7-18); CALCIUM 8.1 MG/DL (8.5-10.1); CARBON DIOXIDE 24 MMOL/L (21-32); CHLORIDE 106 MMOL/L (98-107); SODIUM 138 MMOL/L (136-145)
[2018-03-19] MEDS: Aspirin EC 81mg tab ORAL SCH (08:54)
[2018-03-19] MEDS: Docusate 100mg cap ORAL SCH ×3 (08:54→17:25)
[2018-03-19] MEDS: Metoprolol 25mg tab ORAL SCH ×2 (08:55→20:55)
--- NOTE | 2018-03-19 09:06 | Nephrology Progress Note ---
Assessment/Plan Problem List: (1) Diabetic nephropathy (2) Vomiting (3) Gastroparesis due to DM (4) Anemia in chronic kidney disease (CKD) (5) Hypertension associated with chronic kidney disease due to type 2 diabetes mellitus Assessment Renal failure, Diabetic Nephropathy Vomiting ? Gastroparesis UTI (urinary tract infection) H/O: stroke Anemia DM Plan Reglan PO BP med adjustment IV Iron Add hydralazine Protonix PO Hydrate slowly Kidney AMINTA negative 2D Echo good ej fx PO folic acid per orders Subjective ROS Limited/Unobtainable: No Constitutional: Reports: malaise Objective Objective Last 24 Hour Vital Signs Date Time Temp Pulse Resp B/P (MAP) Pulse Ox O2 Delivery O2 Flow Rate FiO2 03/19/18 08:55 68 140/74 03/19/18 08:16 96.6 68 18 140/74 (96) 96 96.6 03/19/18 06:06 158/82 03/19/18 04:00 97.8 60 16 158/82 (107) 98 97.8 03/19/18 00:00 98.0 65 16 159/83 (108) 94 98.0 03/18/18 21:14 208/85 03/18/18 21:14 61 208/85 03/18/18 21:00 Room Air 03/18/18 20:00 97.6 61 16 208/85 (126) 95 97.6 03/18/18 16:00 97.4 72 17 124/80 (95) 98 97.4 03/18/18 13:37 126/76 03/18/18 11:59 97.8 61 20 126/76 (93) 98 97.8 Intake and Output 03/18/18 03/19/18 19:00 07:00 Intake Total 1705 ml 2875 ml Output Total 1500 ml 2000 ml Balance 205 ml 875 ml IV Total 805 ml 375 ml Other 900 ml 2500 ml Output Urine Total 1500 ml 2000 ml Laboratory Tests 03/19/18 04:00: White Blood Count 8.7, Red Blood Count 3.18L, Hemoglobin 8.7L, Hematocrit 27.3L , Mean Corpuscular Volume 86, Mean Corpuscular Hemoglobin 27.4, Mean Corpuscular Hemoglobin Concent 31.9L, Red Cell Distribution Width 12.7, Platelet Count 251, Mean Platelet Volume 5.5L, Neutrophils (%) (Auto) 64.7, Lymphocytes (%) (Auto) 21.3, Monocytes (%) (Auto) 9.8, Eosinophils (%) (Auto) 3.4H, Basophils (%) (Auto) 0.8, Sodium Level 138, Potassium Level 4.0, Chloride Level 106, Carbon Dioxide Level 24, Anion Gap 8, Blood Urea Nitrogen 34H, Creatinine 3.0H, Estimat Glomerular Filtration Rate 21.2, Glucose Level 218H, Calcium Level 8.1L Height (Feet): 5 Height (Inches): 6.00 Weight (Pounds): 183 General Appearance: no apparent distress Respiratory/Chest: decreased breath sounds Abdomen: soft Objective no change Royce Mehta MD Mar 19, 2018 09:06
[2018-03-19] MEDS: HydrALAZINE 25mg tab ORAL PRN ×2 (11:35→20:55)
[2018-03-19] MEDS: ALPRAZolam 0.5mg tab ORAL PRN (15:18)
--- NOTE | 2018-03-19 16:54 | General Progress Note ---
Assessment/Plan Problem List: (1) Renal insufficiency ICD Codes: N28.9 - Disorder of kidney and ureter, unspecified SNOMED: 135288141, 550574381 (2) UTI (urinary tract infection) ICD Codes: N39.0 - Urinary tract infection, site not specified SNOMED: 70379204, 991526406 Qualifiers: Qualified Codes: T83.511A - Infection and inflammatory reaction due to indwelling urethral catheter, initial encounter; N39.0 - Urinary tract infection , site not specified (3) Vomiting ICD Codes: R11.10 - Vomiting, unspecified SNOMED: 631553664, 244222284 Qualifiers: Qualified Codes: R11.2 - Nausea with vomiting, unspecified (4) H/O: stroke ICD Codes: Z86.73 - Personal history of transient ischemic attack (TIA), and cerebral infarction without residual deficits SNOMED: 488813609, 745288245 (5) Abdominal pain ICD Codes: R10.9 - Unspecified abdominal pain SNOMED: 05942279 Status: progressing Assessment/Plan uti bp is good afebrile reviewed chart and labs dc in am ABX PER ID Subjective ROS Limited/Unobtainable: Yes Allergies: Coded Allergies: No Known Allergies (Unverified , 03/16/18) Objective Last 24 Hour Vital Signs Date Time Temp Pulse Resp B/P (MAP) Pulse Ox O2 Delivery O2 Flow Rate FiO2 03/19/18 16:42 97.0 55 20 194/86 (122) 96 97.0 03/19/18 16:07 96.9 56 20 208/86 (126) 96 96.9 03/19/18 15:17 193/77 03/19/18 12:53 97.7 63 18 193/77 (115) 96 97.7 03/19/18 11:35 193/77 03/19/18 09:00 Room Air 03/19/18 08:55 68 140/74 03/19/18 08:16 96.6 68 18 140/74 (96) 96 96.6 03/19/18 06:06 158/82 03/19/18 04:00 97.8 60 16 158/82 (107) 98 97.8 03/19/18 00:00 98.0 65 16 159/83 (108) 94 98.0 03/18/18 21:14 208/85 921/18 21:14 61 208/85 03/18/18 21:00 Room Air 03/18/18 20:00 97.6 61 16 (126) 95 97.6 Intake and Output 03/18/18 03/19/18 19:00 07:00 Intake Total 1705 ml 2875 ml Output Total 1500 ml 2000 ml Balance 205 ml 875 ml IV Total 805 ml 375 ml Other 900 ml 2500 ml Output Urine Total 1500 ml 2000 ml Laboratory Tests 03/19/18 04:00: White Blood Count 8.7, Red Blood Count 3.18L, Hemoglobin 8.7L, Hematocrit 27.3L , Mean Corpuscular Volume 86, Mean Corpuscular Hemoglobin 27.4, Mean Corpuscular Hemoglobin Concent 31.9L, Red Cell Distribution Width 12.7, Platelet Count 251, Mean Platelet Volume 5.5L, Neutrophils (%) (Auto) 64.7, Lymphocytes (%) (Auto) 21.3, Monocytes (%) (Auto) 9.8, Eosinophils (%) (Auto) 3.4H, Basophils (%) (Auto) 0.8, Sodium Level 138, Potassium Level 4.0, Chloride Level 106, Carbon Dioxide Level 24, Anion Gap 8, Blood Urea Nitrogen 34H, Creatinine 3.0H, Estimat Glomerular Filtration Rate 21.2, Glucose Level 218H, Calcium Level 8.1L Height (Feet): 5 Height (Inches): 6.00 Weight (Pounds): 183 Cardiovascular: normal rate Respiratory/Chest: lungs clear Abdomen: soft Mei Carreon MD Mar 19, 2018 16:54
--- NOTE | 2018-03-19 17:06 | General Progress Note ---
Assessment/Plan Assessment/Plan # Anemia due to iron deficiency -- has been started on iv iron --> anemia panel has been reviewed thus far, ferritin is low, total 3 doses to give --> reviewed peripheral smear in system, no hemolysis is noted --> colo and egd done 2 years ago --> hgb goal >7 # Anemia due to Folate deficiency --> folic acid 1mg po daily # Abdominal pain --> infection potentially is on abx # Sepsis --> abx prn # Vomiting --> will consider endoscopy if medical management fails, most likely gastroparesis # H/O: stroke # Gastroparesis due to DM # Diabetes mellitus --> DM management # R sided weakness s/p CVA Appreciate consultation greatly! Subjective Date patient seen: Mar 18, 2018 Constitutional: Denies: no symptoms, chills, diaphoresis, fever, malaise, weakness, other HEENT: Denies: no symptoms, eye pain, blurred vision, tearing, double vision, ear pain, ear discharge, nose pain, nose congestion, throat pain, throat swelling, mouth pain, mouth swelling, other Cardiovascular: Denies: no symptoms, chest pain, edema, irregular heart rate, lightheadedness, palpitations, syncope, other Respiratory: Denies: no symptoms, cough, orthopnea, shortness of breath, SOB with excertion, SOB at rest, sputum, stridor, wheezing, other Gastrointestinal/Abdominal: Denies: no symptoms, abdomen distended, abdominal pain, black stools, tarry stools, blood in stool, constipated, diarrhea, difficulty swallowing, nausea, poor appetite, poor fluid intake, rectal bleeding , vomiting, other Neurologic/Psychiatric: Denies: no symptoms, anxiety, depressed, emotional problems, headache, numbness, paresthesia, pre-existing deficit, seizure, tingling, tremors, weakness, other Endocrine: Denies: no symptoms, excessive sweating, flushing, intolerance to cold, intolerance to heat, increased hunger, increased thirst, increased urine, unexplained weight gain, unexplained weight loss, other Hematologic/Lymphatic: Denies: no symptoms, anemia, easy bleeding, easy bruising, other Allergies: Coded Allergies: No Known Allergies (Unverified , 03/16/18) Subjective no events to report, no f/c Objective Last 24 Hour Vital Signs Date Time Temp Pulse Resp B/P (MAP) Pulse Ox O2 Delivery O2 Flow Rate FiO2 03/19/18 16:42 97.0 55 20 194/86 (122) 96 97.0 03/19/18 16:07 96.9 56 20 208/86 (126) 96 96.9 03/19/18 15:17 193/77 03/19/18 12:53 97.7 63 18 193/77 (115) 96 97.7 03/19/18 11:35 193/77 03/19/18 09:00 Room Air 03/19/18 08:55 68 140/74 03/19/18 08:16 96.6 68 18 140/74 (96) 96 96.6 03/19/18 06:06 158/82 03/19/18 04:00 97.8 60 16 158/82 (107) 98 97.8 03/19/18 00:00 98.0 65 16 159/83 (108) 94 98.0 03/18/18 21:14 208/85 03/18/18 21:14 61 208/85 03/18/18 21:00 Room Air 03/18/18 20:00 97.6 61 16 208/85 (126) 95 97.6 Intake and Output 03/18/18 03/19/18 19:00 07:00 Intake Total 1705 ml 2875 ml Output Total 1500 ml 2000 ml Balance 205 ml 875 ml IV Total 805 ml 375 ml Other 900 ml 2500 ml Output Urine Total 1500 ml 2000 ml Laboratory Tests 03/19/18 04:00: White Blood Count 8.7, Red Blood Count 3.18L, Hemoglobin 8.7L, Hematocrit 27.3L , Mean Corpuscular Volume 86, Mean Corpuscular Hemoglobin 27.4, Mean Corpuscular Hemoglobin Concent 31.9L, Red Cell Distribution Width 12.7, Platelet Count 251, Mean Platelet Volume 5.5L, Neutrophils (%) (Auto) 64.7, Lymphocytes (%) (Auto) 21.3, Monocytes (%) (Auto) 9.8, Eosinophils (%) (Auto) 3.4H, Basophils (%) (Auto) 0.8, Sodium Level 138, Potassium Level 4.0, Chloride Level 106, Carbon Dioxide Level 24, Anion Gap 8, Blood Urea Nitrogen 34H, Creatinine 3.0H, Estimat Glomerular Filtration Rate 21.2, Glucose Level 218H, Calcium Level 8.1L Height (Feet): 5 Height (Inches): 6.00 Weight (Pounds): 183 General Appearance: no apparent distress EENT: TMs normal Neck: supple Cardiovascular: normal rate Respiratory/Chest: normal breath sounds Abdomen: no organomegaly Extremities: non-tender Edema: 1+ Leg (L), 1+ Leg (R) Edema: mild edema Neurologic: alert Skin: warm/dry Luiz Zavala MD Mar 19, 2018 17:06
[2018-03-19] MEDS: cefTRIAXone 1 GM in D5W 55 ML IVPB SCH (17:26)
--- NOTE | 2018-03-19 18:52 | General Progress Note ---
Assessment/Plan Assessment/Plan Assessment Problems: (1) Diabetes mellitus (2) Folate deficiency (3) Abdominal pain (4) Sepsis (5) Vomiting (6) H/O: stroke (7) Gastroparesis due to DM Plan R sided weakness s/p CVA anemia work up reviewed >> folate deficiency DM elevated CRP renal insufficiency Hx of UC will consider endoscopy if medical management fails, most likely gastroparesis DM management reglan IV for N/V PRN adv diet as tolerated folate monitor H&H, prn transfusions ppi fu labs, ESR Subjective Allergies: Coded Allergies: No Known Allergies (Unverified , 03/16/18) Subjective feels OK no vomiting no abd pain d/w staff development manager Objective Last 24 Hour Vital Signs Date Time Temp Pulse Resp B/P (MAP) Pulse Ox O2 Delivery O2 Flow Rate FiO2 03/19/18 18:46 97.1 65 20 163/86 (111) 96 97.1 03/19/18 17:25 55 194/86 03/19/18 16:42 97.0 55 20 194/86 (122) 96 97.0 03/19/18 16:07 96.9 56 20 208/86 (126) 96 96.9 03/19/18 15:17 193/77 03/19/18 12:53 97.7 63 18 193/77 (115) 96 97.7 03/19/18 11:35 193/77 03/19/18 09:00 Room Air 03/19/18 08:55 68 140/74 03/19/18 08:16 96.6 68 18 140/74 (96) 96 96.6 03/19/18 06:06 158/82 03/19/18 04:00 97.8 60 16 158/82 (107) 98 97.8 03/19/18 00:00 98.0 65 16 159/83 (108) 94 98.0 03/18/18 21:14 208/85 03/18/18 21:14 61 208/85 03/18/18 21:00 Room Air 03/18/18 20:00 97.6 61 16 208/85 (126) 95 97.6 Intake and Output 03/18/18 03/19/18 19:00 07:00 Intake Total 1705 ml 2875 ml Output Total 1500 ml 2000 ml Balance 205 ml 875 ml IV Total 805 ml 375 ml Other 900 ml 2500 ml Output Urine Total 1500 ml 2000 ml Laboratory Tests 03/19/18 04:00: White Blood Count 8.7, Red Blood Count 3.18L, Hemoglobin 8.7L, Hematocrit 27.3L , Mean Corpuscular Volume 86, Mean Corpuscular Hemoglobin 27.4, Mean Corpuscular Hemoglobin Concent 31.9L, Red Cell Distribution Width 12.7, Platelet Count 251, Mean Platelet Volume 5.5L, Neutrophils (%) (Auto) 64.7, Lymphocytes (%) (Auto) 21.3, Monocytes (%) (Auto) 9.8, Eosinophils (%) (Auto) 3.4H, Basophils (%) (Auto) 0.8, Sodium Level 138, Potassium Level 4.0, Chloride Level 106, Carbon Dioxide Level 24, Anion Gap 8, Blood Urea Nitrogen 34H, Creatinine 3.0H, Estimat Glomerular Filtration Rate 21.2, Glucose Level 218H, Calcium Level 8.1L Height (Feet): 5 Height (Inches): 6.00 Weight (Pounds): 183 Objective WDWN NCAT supple CTA RRR abd soft NT ND no edema Tracy Mcwilliams MD Mar 19, 2018 18:52
[2018-03-19] MEDS: Tamsulosin 0.4mg cap ORAL SCH (20:55)
[2018-03-19] MEDS ORDERED: Iron Sucrose 100 MG in NS 55 ML IV SCH (21:00)
[2018-03-19] MEDS: HydrALAZINE 50mg tab ORAL SCH (23:18)
[2018-03-20] VITALS: BP 126/68
[2018-03-20] MEDS: Norco 5mg/325mg tab ORAL PRN ×2 (03:04→09:04)
[2018-03-20 04:00] VITALS: BP 138/90
[2018-03-20] MEDS: HydrALAZINE 50mg tab ORAL SCH ×2 (06:20→13:45)
[2018-03-20] MEDS: NovoLOG Insulin Flexpen SUBQ SCH ×2 (06:27→11:30)
[2018-03-20] MEDS: ALPRAZolam 0.5mg tab ORAL PRN (06:30)
[2018-03-20 08:00] VITALS: BP 135/81
[2018-03-20] MEDS: Metoprolol 25mg tab ORAL SCH (08:54)
[2018-03-20] MEDS: Docusate 100mg cap ORAL SCH ×2 (08:54→13:45)
[2018-03-20] MEDS: Aspirin EC 81mg tab ORAL SCH (08:54)
[2018-03-20] MEDS ORDERED: Norco 5mg/325mg tab ORAL SCH (09:28)
[2018-03-20] MEDS ORDERED: D5NS 1000ml IV ONE (10:12)
[2018-03-20] MEDS ORDERED: Tubing IV Secondary IV ONE (10:12)
--- NOTE | 2018-03-20 10:16 | Nephrology Progress Note ---
Assessment/Plan Problem List: (1) Diabetic nephropathy (2) Vomiting (3) Gastroparesis due to DM (4) Anemia in chronic kidney disease (CKD) (5) Hypertension associated with chronic kidney disease due to type 2 diabetes mellitus Assessment Renal failure, Diabetic Nephropathy Vomiting ? Gastroparesis UTI (urinary tract infection) H/O: stroke Anemia DM Plan no labs today- BP meds adjusted Reglan PO IV Iron Protonix PO Kidney AMINTA negative 2D Echo good ej fx PO folic acid per orders Subjective ROS Limited/Unobtainable: No Constitutional: Reports: malaise Objective Objective Last 24 Hour Vital Signs Date Time Temp Pulse Resp B/P (MAP) Pulse Ox O2 Delivery O2 Flow Rate FiO2 03/20/18 09:00 Room Air 03/20/18 08:54 100 135/81 03/20/18 08:54 100 135/81 03/20/18 08:00 98.1 100 18 135/81 (99) 96 98.1 03/20/18 06:20 138/90 03/20/18 04:00 97.5 80 18 138/90 (106) 96 97.5 03/20/18 00:00 96.9 74 16 126/68 (87) 93 96.9 03/19/18 23:18 159/69 03/19/18 23:00 159/69 (99) 03/19/18 21:00 Room Air 03/19/18 20:55 178/82 03/19/18 20:55 96 178/82 03/19/18 20:00 97.5 63 17 178/82 (114) 95 97.5 03/19/18 18:46 97.1 65 20 163/86 (111) 96 97.1 03/19/18 17:25 55 194/86 03/19/18 16:42 97.0 55 20 194/86 (122) 96 97.0 03/19/18 16:07 96.9 56 20 208/86 (126) 96 96.9 03/19/18 15:17 193/77 03/19/18 12:53 97.7 63 18 193/77 (115) 96 97.7 03/19/18 11:35 193/77 Intake and Output 03/19/18 03/20/18 19:00 07:00 Intake Total 990 ml 60 ml Output Total 2200 ml 1675 ml Balance -1210 ml -1615 ml Intake Oral 840 ml IV Total 150 ml 60 ml Output Urine Total 2200 ml 1675 ml # Bowel Movements 2 1 Height (Feet): 5 Height (Inches): 6.00 Weight (Pounds): 183 General Appearance: no apparent distress Cardiovascular: normal rate Respiratory/Chest: decreased breath sounds Abdomen: soft Objective no change Royce Mehta MD Mar 20, 2018 10:16
--- NOTE | 2018-03-20 11:04 | Infectious Diseases Prog Note ---
Assessment/Plan Assessment/Plan A: 1. positive blood culture likely contamination 2. Pyuria, likely UTI with Proteus & Klebsiella 3. Acute renal failure, chronic kidney disease 4. Anemia. 5. Diabetes mellitus. 6. Hypertension. 7. Prostatic hypertrophy P; discontinue Rocephin Start on PO Cipro X 2 days Subjective ROS Limited/Unobtainable: No Constitutional: Reports: no symptoms Respiratory: Reports: no symptoms Gastrointestinal/Abdominal: Reports: no symptoms Genitourinary: Reports: no symptoms Allergies: Coded Allergies: No Known Allergies (Unverified , 03/16/18) Objective Vital Signs Last 24 Hour Vital Signs Date Time Temp Pulse Resp B/P (MAP) Pulse Ox O2 Delivery O2 Flow Rate FiO2 03/20/18 09:00 Room Air 03/20/18 08:54 100 135/81 03/20/18 08:54 100 135/81 03/20/18 08:00 98.1 100 18 135/81 (99) 96 98.1 03/20/18 06:20 138/90 03/20/18 04:00 97.5 80 18 138/90 (106) 96 97.5 03/20/18 00:00 96.9 74 16 126/68 (87) 93 96.9 03/19/18 23:18 159/69 03/19/18 23:00 159/69 (99) 03/19/18 21:00 Room Air 03/19/18 20:55 178/82 03/19/18 20:55 96 178/82 03/19/18 20:00 97.5 63 17 178/82 (114) 95 97.5 03/19/18 18:46 97.1 65 20 163/86 (111) 96 97.1 03/19/18 17:25 55 194/86 03/19/18 16:42 97.0 55 20 194/86 (122) 96 97.0 03/19/18 16:07 96.9 56 20 208/86 (126) 96 96.9 03/19/18 15:17 193/77 03/19/18 12:53 97.7 63 18 193/ (115) 96 97.7 03/19/18 11:35 193/ Height (Feet): 5 Height (Inches): 6.00 Weight (Pounds): 183 General Appearance: no acute distress HEENT: mucous membranes moist Respiratory/Chest: lungs clear Cardiovascular: normal rate Abdomen: soft, non tender Extremities: no edema Neurologic/Psychiatric: alert, responsive Current Medications Medications (Trade) Dose Ordered Sig/Martin Route PRN Reason Start Time Stop Time Status Last Admin Dose Admin Acetaminophen (Tylenol) 650 mg Q6H PRN ORAL Mild Pain (1-3) 03/19/18 17:30 04/15/18 17:29 03/19/18 18:02 Acetaminophen/ Hydrocodone Bitart (Lutz 5/325) 1 tab Q4H PRN ORAL Moderate Pain (Pain Scale 4-6) 03/20/18 13:00 03/27/18 12:59 Alprazolam (Xanax) 0.5 mg EVERY 8 HOURS PRN ORAL For Anxiety 03/16/18 23:45 03/23/18 23:44 03/20/18 06:30 Amlodipine Besylate (Norvasc) 10 mg DAILY ORAL 03/20/18 09:00 04/19/18 08:59 03/20/18 08:54 Aspirin (Ecotrin) 81 mg DAILY ORAL 03/18/18 09:00 04/17/18 08:59 03/20/18 08:54 Ceftriaxone Sodium 1 gm/ Dextrose 55 ml @ 110 mls/hr Q24H IVPB 03/17/18 17:00 03/24/18 16:59 03/19/18 17:26 Dextrose (Dextrose 50%) 25 ml PRN PRN IV Hypoglycemia 03/17/18 13:00 04/16/18 12:59 Dextrose (Dextrose 50%) 50 ml PRN PRN IV Hypoglycemia 03/17/18 13:00 04/16/18 12:59 Docusate Sodium (Colace) 100 mg THREE TIMES A DAY ORAL 03/17/18 18:00 04/16/18 17:59 03/20/18 08:54 Epoetin Riky (Procrit (for non ESRD use)) 10,000 units WED-WED-WED SUBQ 03/18/18 21:00 04/17/18 20:59 03/18/18 21:15 Escitalopram Oxalate (Lexapro) 10 mg DAILY ORAL 03/18/18 09:00 04/17/18 08:59 03/20/18 08:54 Folic Acid (Folate) 2 mg DAILY ORAL 03/18/18 09:00 04/17/18 08:59 03/20/18 08:54 Hydralazine HCl (Apresoline) 25 mg Q4H PRN ORAL bp over 160 syst 03/19/18 09:15 04/18/18 09:14 03/19/18 20:55 Hydralazine HCl (Apresoline) 50 mg Q8HR ORAL 03/19/18 22:00 04/17/18 13:59 03/20/18 06:20 Insulin Aspart (NovoLOG) BEFORE MEALS AND HS SUBQ 03/17/18 16:30 04/16/18 16:29 03/20/18 06:27 Iron Sucrose 100 mg/Sodium Chloride 60 ml @ 240 mls/hr BEDTIME IV 03/19/18 21:00 03/26/18 21:14 03/19/18 20:59 Metoclopramide HCl (Reglan) 10 mg Q8H PRN IVP Nausea & Vomiting 03/17/18 14:45 04/16/18 14:44 Metoclopramide HCl (Reglan) 10 mg THREE TIMES A DAY ORAL 03/18/18 13:15 04/17/18 13:14 03/20/18 08:54 Metoprolol Tartrate (Lopressor) 25 mg EVERY 12 HOURS ORAL 03/17/18 21:00 04/16/18 20:59 03/20/18 08:54 Mirtazapine (Remeron) 15 mg BEDTIME ORAL 03/16/18 23:45 04/15/18 23:44 03/19/18 20:58 Pantoprazole (Protonix) 40 mg EVERY 12 HOURS ORAL 03/18/18 21:00 04/17/18 20:59 03/20/18 08:54 Quetiapine Fumarate (SEROquel) 25 mg Q6H PRN ORAL agitation 03/17/18 13:00 04/16/18 12:59 03/20/18 00:38 Tamsulosin HCl (Flomax) 0.4 mg BEDTIME ORAL 03/17/18 21:00 04/16/18 20:59 03/19/18 20:55 Mike Verde MD Mar 20, 2018 11:03
[2018-03-20 12:00] VITALS: BP 139/77
[2018-03-20] MEDS ORDERED: Norco 5mg/325mg tab ORAL PRN (13:00)
[2018-03-20] MEDS ORDERED: CEPHALEXIN500 MG ORAL (13:22)
--- NOTE | 2018-03-20 13:55 | General Progress Note ---
Assessment/Plan Assessment/Plan # Anemia due to iron deficiency -- has been started on iv iron --> anemia panel has been reviewed thus far, ferritin is low, total 3 doses has been given --> reviewed peripheral smear in system, no hemolysis is noted --> colo and egd done 2 years ago --> hgb goal >7 # Anemia due to Folate deficiency --> folic acid 1mg po daily --> reascertain in future # Abdominal pain --> infection potentially is on abx # Sepsis --> abx prn # Vomiting --> will consider endoscopy if medical management fails, most likely gastroparesis # H/O: stroke # Gastroparesis due to DM # Diabetes mellitus --> DM management # R sided weakness s/p CVA Appreciate consultation greatly! Subjective Constitutional: Denies: no symptoms, chills, diaphoresis, fever, malaise, weakness, other HEENT: Denies: no symptoms, eye pain, blurred vision, tearing, double vision, ear pain, ear discharge, nose pain, nose congestion, throat pain, throat swelling, mouth pain, mouth swelling, other Cardiovascular: Denies: no symptoms, chest pain, edema, irregular heart rate, lightheadedness, palpitations, syncope, other Respiratory: Denies: no symptoms, cough, orthopnea, shortness of breath, SOB with excertion, SOB at rest, sputum, stridor, wheezing, other Gastrointestinal/Abdominal: Denies: no symptoms, abdomen distended, abdominal pain, black stools, tarry stools, blood in stool, constipated, diarrhea, difficulty swallowing, nausea, poor appetite, poor fluid intake, rectal bleeding , vomiting, other Genitourinary: Denies: no symptoms, burning, discharge, frequency, flank pain, hematuria, incontinence, pain, urgency, other Neurologic/Psychiatric: Denies: no symptoms, anxiety, depressed, emotional problems, headache, numbness, paresthesia, pre-existing deficit, seizure, tingling, tremors, weakness, other Endocrine: Denies: no symptoms, excessive sweating, flushing, intolerance to cold, intolerance to heat, increased hunger, increased thirst, increased urine, unexplained weight gain, unexplained weight loss, other Hematologic/Lymphatic: Denies: no symptoms, anemia, easy bleeding, easy bruising, other Allergies: Coded Allergies: No Known Allergies (Unverified , 03/16/18) Subjective no events to report, no f/c noted Objective Last 24 Hour Vital Signs Date Time Temp Pulse Resp B/P (MAP) Pulse Ox O2 Delivery O2 Flow Rate FiO2 03/20/18 13:45 160/79 03/20/18 12:00 98.7 73 19 139/77 (97) 97 98.7 03/20/18 09:00 Room Air 03/20/18 08:54 100 135/81 03/20/18 08:54 100 135/81 03/20/18 08:00 98.1 100 18 135/81 (99) 96 98.1 03/20/18 06:20 138/90 03/20/18 04:00 97.5 80 18 138/90 (106) 96 97.5 03/20/18 00:00 96.9 74 16 126/68 (87) 93 96.9 03/19/18 23:18 159/69 03/19/18 23:00 159/69 (99) 03/19/18 21:00 Room Air 03/19/18 20:55 178/82 03/19/18 20:55 96 178/82 03/19/18 20:00 97.5 63 17 178/82 (114) 95 97.5 03/19/18 18:46 97.1 65 20 163/86 (111) 96 97.1 03/19/18 17:25 55 194/86 03/19/18 16:42 97.0 55 20 194/86 (122) 96 97.0 03/19/18 16:07 96.9 56 20 208/86 (126) 96 96.9 03/19/18 15:17 193/77 Intake and Output 03/19/18 03/20/18 19:00 07:00 Intake Total 990 ml 60 ml Output Total 2200 ml 1675 ml Balance -1210 ml -1615 ml Intake Oral 840 ml IV Total 150 ml 60 ml Output Urine Total 2200 ml 1675 ml # Bowel Movements 2 1 Height (Feet): 5 Height (Inches): 6.00 Weight (Pounds): 183 General Appearance: no apparent distress EENT: TMs normal Neck: normal alignment Cardiovascular: normal rate Respiratory/Chest: lungs clear Abdomen: soft Extremities: non-tender Edema: no edema noted Leg (L), no edema noted Leg (R) Edema: mild edema Neurologic: alert Luiz Zavala MD Mar 20, 2018 13:55
[2018-03-20 15:50] VITALS: BP 145/81
--- NOTE | 2018-03-20 17:21 | General Progress Note ---
Assessment/Plan Assessment/Plan Assessment Problems: (1) Diabetes mellitus (2) Folate deficiency (3) Abdominal pain (4) Sepsis (5) Vomiting (6) H/O: stroke (7) Gastroparesis due to DM Plan R sided weakness s/p CVA anemia work up reviewed >> folate deficiency DM elevated CRP renal insufficiency Hx of UC DM management reglan IV for N/V PRN adv diet as tolerated folate monitor H&H, prn transfusions ppi fu labs, ESR Subjective Allergies: Coded Allergies: No Known Allergies (Unverified , 03/16/18) Subjective feels OK no vomiting no abd pain for d/c today Objective Last 24 Hour Vital Signs Date Time Temp Pulse Resp B/P (MAP) Pulse Ox O2 Delivery O2 Flow Rate FiO2 03/20/18 15:50 98.2 82 19 145/81 (102) 97 98.2 03/20/18 13:45 160/79 03/20/18 12:00 98.7 73 19 139/77 (97) 97 98.7 03/20/18 09:00 Room Air 03/20/18 08:54 100 135/81 03/20/18 08:54 100 135/81 03/20/18 08:00 98.1 100 18 135/81 (99) 96 98.1 03/20/18 06:20 138/90 03/20/18 04:00 97.5 80 18 138/90 (106) 96 97.5 03/20/18 00:00 96.9 74 16 126/68 (87) 93 96.9 03/19/18 23:18 159/69 03/19/18 23:00 159/69 (99) 03/19/18 21:00 Room Air 03/19/18 20:55 178/82 03/19/18 20:55 96 178/82 03/19/18 20:00 97.5 63 17 178/82 (114) 95 97.5 03/19/18 18:46 97.1 65 20 163/86 (111) 96 97.1 03/19/18 17:25 55 194/86 Intake and Output 03/19/18 03/20/18 19:00 07:00 Intake Total 990 ml 60 ml Output Total 2200 ml 1675 ml Balance -1210 ml -1615 ml Intake Oral 840 ml IV Total 150 ml 60 ml Output Urine Total 2200 ml 1675 ml # Bowel Movements 2 1 Height (Feet): 5 Height (Inches): 6.00 Weight (Pounds): 183 Objective WDWN NCAT supple CTA RRR abd soft NT ND no edema Tracy Mcwilliams MD Mar 20, 2018 17:21
--- NOTE | 2018-03-20 20:27 | Diagnostic Imaging Report ---
APPROVED REPORT CPT Code: 04427 Present Symptoms Comments: BILATERAL LEGS PAIN. BILATERAL: Imaging reveals a patent deep venous system bilaterally. There is no evidence of thrombus within the femoral, popliteal or tibial segments. The greater saphenous veins are also within normal limits. Doppler indicates normal spontaneous flow within these segments.
[2018-03-20] MEDS ORDERED: Cephalexin 250mg Cap ORAL SCH (21:00)
--- NOTE | 2018-03-23 07:53 | Discharge Summary ---
Discharge Summary Discharge Summary _ DATE OF ADMISSION: 03/16/2018 DATE OF DISCHARGE: 03/20/2018 REASON FOR ADMISSION: 63 years old male with history of hypertension, diabetes mellitus, chronic kidney disease, BPH, GERD, laminectomy, CVA with right-sided weakness, presented from the retirement facility with three episodes of vomiting. Patient reported feeling nauseous prior to vomiting. He reported minimal abdominal pain, not localized. Rain catheter was changed one week ago. Patient by himself was a poor historian and unable to provide sufficient information. Upon evaluation in emergency department vital signs showed elevated blood pressure 165/76 ,otherwise no fever ,stable heart rate. Patient was placed on 2 L of oxygen via nasal cannula with pulse oximetry reaching 95%. WBC 12.4. Hemoglobin 9.4, hematocrit 29.1. Lactic acid 1.1 BUN 37, creatinine 3.0. Glucose 221 Troponin negative. EKG showed normal sinus rhythm, no acute ischemic changes . LFT and lipase within normal limits. Urinalysis with evidence of UTI. Chest x-ray revealed borderline cardiomegaly , possible retrocardiac atelectasis versus consolidation, right base atelectasis. Abdominal x-ray revealed no acute pathology. Patient admitted with diagnoses of UTI, vomiting, renal failure, history of stroke, ,hyperglycemia with history of diabetes, anemia. CONSULTANTS: ID specialist Dr. Jessica Verde GI specialist Dr. Franks knit goods washer Dr. Mehta crop production advisor/oncologist Dr. Zavala psychiatrist [facility] COURSE: Patient admitted. Patient initially started on IV fluids and kept nothing by mouth. Patient started on empiric antibiotics. ID specialist closely followed. Blood culture revealed 1 out of 4 Staphylococci coagulase negative . Blood culture was likely contaminant as per ID specialist confusion. Urine culture was positive for Klebsiella and Proteus. Patient was on IV antibiotics under ID specialist directions. Antibiotics changed to oral upon discharge to complete the course. GI specialist , knit goods washer and crop production advisor closely followed . Patient likely had gastroparesis secondary to diabetes mellitus. Supportive care with antiemetics provided as needed. Patient was on GI prophylaxis. Blood sugar was managed with sliding scale insulin. Hemoglobin A1c 7.7. Anemia workup revealed anemia of folate deficiency, iron deficiency, and anemia of chronic disease. Hemoglobin and hematocrit were closely monitored with goal to keep hemoglobin above 7. No need for transfusion, counts remained at baseline. Folic acid supplementation provided. IV Venofer was given. Patient was on Epogen Renal ultrasound revealed no hydronephrosis, but showed evidence of increased bilateral echogenicity, consistent with medical renal disease. IVF discontinued, No change in renal parameters. Electrolytes were closely monitored and corrected as needed. Sales Lead recommended to avoid nephrotoxic. Antihypertensive regimen was uptitrated, and blood pressure was managed with calcium channel kris and hydralazine. Blood pressure stabilized. Antiplatelet therapy with aspirin was continued. Lipid panel was stable. Pain management was addressed as needed . Supportive care provided. Psychiatrist seen and evaluated patient . Seroquel was provided on as needed basis for encephalopathy secondary to general medical condition. No further vomiting, tolerated diet ,blood pressure stable. Patient clinically stabilized and was ready to return back to retirement facility . FINAL DIAGNOSES: Urinary tract infection with Klebsiella and Proteus Gastroparesis secondary to diabetes mellitus Diabetes with diabetic nephropathy Chronic renal failure Hypertension associated with chronic kidney disease due to diabetes mellitus type 2 Anemia of chronic kidney disease Anemia of iron deficiency Anemia of folate deficiency Encephalopathy secondary to general medical condition BPH History of stroke Anxiety disorder DISCHARGE MEDICATIONS: See Medication Reconciliation list. DISCHARGE INSTRUCTIONS: Patient was discharged to the retirement facility. Follow up with medical doctor at the facility. I have been assigned to dictate discharge summary for this account. I was not involved in the patient's management. Leilani Howard NP Mar 23, 2018 07:53
== END 2018-03-20 15:50 | DRG 689 ==
LOC: EDBD 10:50 → EMR 11:05 → 4E 12:29 → EDBEDREQ 12:55
DX: N39.0 Urinary tract infection, site not specified (principal); G93.49 Other encephalopathy; I69.351 Hemiplegia and hemiparesis following cerebral infarction affecting right dominant side; R11.2 Nausea with vomiting, unspecified; E11.43 Type 2 diabetes mellitus with diabetic autonomic (poly)neuropathy; K31.84 Gastroparesis; I12.9 Hypertensive chronic kidney disease with stage 1 through stage 4 chronic kidney disease, or unspecified chronic kidney disease; E11.22 Type 2 diabetes mellitus with diabetic chronic kidney disease; N18.9 Chronic kidney disease, unspecified; K21.9 Gastro-esophageal reflux disease without esophagitis; F41.9 Anxiety disorder, unspecified; F39 Unspecified mood [affective] disorder; G47.00 Insomnia, unspecified; I10 Essential (primary) hypertension; N40.1 Benign prostatic hyperplasia with lower urinary tract symptoms; R33.8 Other retention of urine; Z79.4 Long term (current) use of insulin; D50.9 Iron deficiency anemia, unspecified; B96.1 Klebsiella pneumoniae [K. pneumoniae] as the cause of diseases classified elsewhere; B96.4 Proteus (mirabilis) (morganii) as the cause of diseases classified elsewhere; D63.8 Anemia in other chronic diseases classified elsewhere; D52.9 Folate deficiency anemia, unspecified
CPT/HCPCS: 36415; 71045; 74018; 76770; 80048; 80053; 80061; 81003; 82550; 82607; 82728; 82746; 82962; 82977; 83036; 83540; 83550; 83605; 83690; 83735; 83880; 84100; 84443; 84484; 84550; 85025; 85610; 85651; 85730; 86140; 87040; 87081; 87086; 87181; 93005; 93306; 93970; 96361; 96365; 96375; 99285; J1815; J2405; J2765